=== PATIENT | female | born 1975 ===

== ENCOUNTER 2017-04-27 13:27 | Emergency (ER) | payer MEDICAID ==
[2017-04-27] MEDS ORDERED: Sodium Chloride 0.9% 1,000 ML IV STA (14:20)
--- NOTE | 2017-04-27 14:24 | ED PDOC ---
Arrival/HPI - General Chief Complaint: GI Problem Time Seen by Provider: 04/27/17 14:14 Historian: Patient - History of Present Illness Narrative History of Present Illness (Text): 04/27/17 14:20 Jami Tobin is a 42 year old female, whose past medical history includes cholecystectomy and 3 c-sections, who presents to the emergency department complaining of nausea, vomiting, diarrhea, and abdominal pain since 04:00 acutely, as per index clerk. Patient denies any sick person contact , fever, or any other complaints at this time. Patient is not a smoker and does not drink any alcohol. Time/Duration: Other (04:00 am this morning) Symptom Onset: Gradual Symptom Course: Unchanged Activities at Onset: Light Context: Home Associated Symptoms (Text): 04/27/17 15:02 index clerk reports abdominal pain nausea vomiting and diarrhea acutely since 4 AM today. No travel or exposure. No fever or chills. No back pain. No genitourinary symptoms. Past Medical History - Provider Review Nursing Documentation Reviewed: Yes - Infectious Disease Hx of Infectious Diseases: None - Reproductive Menopause: No - Cardiac Hx Hypertension: Yes - Psychiatric Hx Substance Use: No - Surgical History Hx Section: Yes Hx Cholecystectomy: Yes - Anesthesia Hx Anesthesia: No Family/Social History - Physician Review Nursing Documentation Reviewed: Yes Family/Social History: No Known Family HX Smoking Status: Never Smoked Hx Alcohol Use: No Hx Substance Use: No Allergies/Home Meds Allergies/Adverse Reactions: Allergies aspirin Allergy (Verified 04/27/17 13:55) RASH Home Medications: Home Meds Medication Instructions Recorded Confirmed Hctz 12.5 12.5 mg PO DAILY 04/27/17 04/27/17 Review of Systems - Physician Review All systems were reviewed & negative as marked: Yes - Review of Systems Constitutional: absent: Fevers Eyes: absent: Vision Changes ENT: absent: Hearing Changes Respiratory: absent: SOB, Cough Cardiovascular: absent: Chest Pain Gastrointestinal: Abdominal Pain, Diarrhea, Nausea, Vomiting Genitourinary Female: absent: Dysuria, Frequency Musculoskeletal: absent: Arthralgias Skin: absent: Rash Neurological: absent: Headache Endocrine: absent: Diaphoresis Hemo/Lymphatic: absent: Adenopathy Psychiatric: absent: Anxiety, Depression Physical Exam Vital Signs Reviewed: Yes Vital Signs Temp Pulse Resp BP Pulse Ox 04/27/17 13:51 99.7 F H 92 H 16 146/83 98 Temperature: Afebrile Blood Pressure: Normal Pulse: Regular Respiratory Rate: Normal Appearance: Positive for: Uncomfortable, Other (Obese) Pain Distress: None - Systems Exam Head: Present: Atraumatic, Normocephalic Pupils: Present: PERRL Extroacular Muscles: Present: EOMI Conjunctiva: Present: Normal Mouth: Present: Dry (mucous membranes) Pharnyx: No: ERYTHEMA, EXUDATE, TONSILS ENLARGED Neck: Present: Normal Range of Motion Respiratory/Chest: Present: Clear to Auscultation, Good Air Exchange. No: Respiratory Distress, Accessory Muscle Use Cardiovascular: Present: Regular Rate and Rhythm, Normal S1, S2. No: Murmurs Abdomen: Present: Normal Bowel Sounds, Scars. No: Tenderness, Distention, Peritoneal Signs, Rebound Back: Present: Normal Inspection Upper Extremity: Present: Normal Inspection. No: Cyanosis, Edema Lower Extremity: Present: Normal Inspection. No: Edema Neurological: Present: GCS=15, CN II-XII Intact, Speech Normal, Motor Func Grossly Intact Skin: Present: Warm, Dry, Normal Color. No: Rashes Psychiatric: Present: Alert, Oriented x 3, Normal Insight, Normal Concentration Medical Decision Making ED Course and Treatment: 04/27/17 14:25 Impression: 42 year old female complainig of nausea, vomiting, diarrhea, and abdominal pain since 04:00 acutely. Plan: -- Urinalysis -- Labs -- Protonix, Zofran, and IV Fluids -- Reassess and disposition Progress Notes: 04/27/17 16:03 Symptoms are markedly improved. - Lab Interpretations Lab Results: 04/27/17 15:00 04/27/17 15:00 Lab Results 04/27/17 15:00: Sodium 142, Potassium 3.8, Chloride 103, Carbon Dioxide 26, Anion Gap 16, BUN 12, Creatinine 0.7, Est GFR ( Amer) > 60, Est GFR (Non- Af Amer) > 60, Random Glucose 89, Calcium 9.7, Total Bilirubin 0.5, AST 24, ALT 29, Alkaline Phosphatase 84, Total Protein 7.9, Albumin 4.4, Globulin 3.5, Albumin/Globulin Ratio 1.3, Lipase 69 04/27/17 15:00: Urine Color Yellow, Urine Appearance Sl cloudy, Urine pH 6.0, Ur Specific [place] 1.025, Urine Protein Trace H, Urine Glucose (UA) Negative, Urine Ketones Negative, Urine Blood Moderate H, Urine Nitrate Negative, Urine Bilirubin Negative, Urine Urobilinogen 0.2, Ur Leukocyte Esterase Negative, Urine RBC 1 - 3, Urine WBC Negative, Ur Epithelial Cells 3 - 4 04/27/17 15:00: WBC 5.5, RBC 4.10, Hgb 10.8 L, Hct 34.2 L, MCV 83.4, MCH 26.3, MCHC 31.6, RDW 14.4, Plt Count 254, MPV 9.0, Gran % 77.9 H, Lymph % (Auto) 14.4 L, [place] % (Auto) 6.0, Eos % (Auto) 1.5, Baso % (Auto) 0.2, Gran # 4.29, Lymph # 0.8 L, [place] # 0.3, Eos # 0.1, Baso # 0.01 - Medication Orders Current Medication Orders: Discontinued Medications Sodium Chloride (Sodium Chloride 0.9%) 1,000 mls @ 1,000 mls/hr IV .Q1H STA Stop: 04/27/17 15:19 Last Admin: 04/27/17 15:03 Dose: 1,000 mls/hr eMAR Start Stop Document 04/27/17 15:03 EQ (Rec: 04/27/17 15:03 EQ [id number]) Intravenous Solution Start Date 04/27/17 Start Time 15:03 Ondansetron HCl (Zofran Inj) 4 mg IVP STAT STA Stop: 04/27/17 14:21 Last Admin: 04/27/17 15:03 Dose: 4 mg IVP Administration Document 04/27/17 15:03 EQ (Rec: 04/27/17 15:03 EQ [id number]) Charges for Administration # of IVP Administrations 1 Pantoprazole Sodium (Protonix Inj) 40 mg IVP STAT STA Stop: 04/27/17 14:21 Last Admin: 04/27/17 15:03 Dose: 40 mg IVP Administration Document 04/27/17 15:03 EQ (Rec: 04/27/17 15:03 EQ [id number]) Charges for Administration # of IVP Administrations 1 - Scribe Statement The provider has reviewed the documentation as recorded by the George Gill Provider Scribe Attestation: All medical record entries made by the Daryibraul were at my direction and personally dictated by me. I have reviewed the chart and agree that the record accurately reflects my personal performance of the history, physical exam, medical decision making, and the department course for this patient. I have also personally directed, reviewed, and agree with the discharge instructions and disposition. Disposition/Present on Arrival - Present on Arrival Any Indicators Present on Arrival: No History of DVT/PE: No History of Uncontrolled Diabetes: No Urinary Catheter: No History of Decub. Ulcer: No History Surgical Site Infection Following: None - Disposition Have Diagnosis and Disposition been Completed?: Yes Diagnosis: Gastroenteritis, Nausea vomiting and diarrhea, Abdominal pain Disposition: HOME/ ROUTINE Disposition Time: 16:03 Patient Plan: Discharge Condition: IMPROVED Discharge Instructions (ExitCare): Gastroenteritis (ED), Acute Diarrhea (ED), Acute Nausea and Vomiting (ED), Abdominal Pain (ED) Additional Instructions: Symptomatic treatment. Clear liquids for 24 hours. Follow-up with PMD. Follow up in ER as needed. Prescriptions: Pantoprazole Sodium [Protonix] 40 mg PO DAILY #20 ect Ondansetron [Zofran Odt] 4 mg SL Q6 #20 odt Referrals: Mindy Cazares, [Primary Care Provider] - Follow up with primary Forms: [employer] (Bulgarian)
[2017-04-27 15:21] LABS: BASO # 0.01 K/mm3 (0.0-2.0); BASO % 0.2 % (0.0-3.0); EOS # 0.1 (0.0-0.7); EOS % 1.5 % (1.5-5.0); GRAN # 4.29 (1.4-6.5); GRAN % 77.9 % (50.0-68.0); HEMOGLOBIN 10.8 g/dL (12.0-16.0); LYMPH # 0.8 (1.2-3.4); LYMPH % 14.4 % (22.0-35.0); MEAN CELL VOLUME 83.4 fl (80.0-105.0); MEAN CORPUSCULAR HEMOGLOBIN 26.3 pg (25.0-35.0); MEAN CORPUSCULAR HGB CONC 31.6 g/dl (31.0-37.0); MONO # 0.3 (0.1-0.6); RBC 4.1 10^6/uL (3.5-6.1); RED CELL DISTRIBUTION WIDTH 14.4 % (11.5-14.5); WHITE BLOOD COUNT 5.5 10^3/ul (4.5-11.0)
[2017-04-27 15:26] LABS: URINE APPEARANCE SL CLOUDY (CLEAR); URINE BILIRUBIN NEGATIVE (NEGATIVE); URINE BLOOD MODERATE (NEGATIVE); URINE COLOR YELLOW (YELLOW); URINE GLUCOSE (UA) NEGATIVE (NEGATIVE); URINE LEUKOCYTE ESTERASE NEGATIVE Leu/uL (NEGATIVE); URINE NITRATE NEGATIVE (NEGATIVE); URINE PROTEIN TRACE mg/dL (<30 mg/dL); URINE UROBILINOGEN 0.2 E.U./dL (<1 E.U./dL)
[2017-04-27 15:29] LABS: URINE WBC NEGATIVE /hpf (0-6)
[2017-04-27 15:32] LABS: ALB/GLOB RATIO 1.3 (1.1-1.8); ALBUMIN 4.4 g/dL (3.0-4.8); ALT/SGPT 29 U/L (7-56); AST/SGOT 24 U/L (14-36); BLOOD UREA NITROGEN 12 mg/dL (7-21); CALCIUM 9.7 mg/dL (8.4-10.5); GFR AFRICAN-AMERICAN > 60; GFR NON-AFRICAN AMERICAN > 60; LIPASE 69 U/L (23-300)
[2017-04-27 16:36] VITALS: BP 134/78; PULSE 81; RESP 18; TEMP 99; O2SAT 99
== END 2017-04-27 16:30 | disposition home or self-care (01) ==
LOC: ED 13:27
DX: K52.9 Noninfective gastroenteritis and colitis, unspecified (principal); R11.2 Nausea with vomiting, unspecified; I10 Essential (primary) hypertension
CPT/HCPCS: 80053; 81001; 83690; 85025; 96374; 96375; 99284; C9113; J2405; J7040

== ENCOUNTER 2017-04-28 10:52 | Observation (INO) | payer MEDICAID ==
[2017-04-28 11:27] VITALS: BMI 40.4
[2017-04-28] MEDS ORDERED: Sodium Chloride 0.9% 1,000 ML IV STA (12:33)
--- NOTE | 2017-04-28 12:34 | ED PDOC ---
Arrival/HPI - General Chief Complaint: GI Problem Time Seen by Provider: 04/28/17 12:27 Historian: Patient - History of Present Illness Narrative History of Present Illness (Text): 04/28/17 12:33 42 year old female, whose past medical history includes cholecystectomy and 3 c- sections, presents to the emergency department complaining of nausea, vomiting, diarrhea, and generalized abdominal pain that began yesterday. Patient was seen yesterday for similar symptoms and returned today with no relief. Patient denies smoking or alcohol use. Patient denies any fever, chills, chest pain, shortness of breath, urinary symptoms, back pain, neck pain, headache, dizziness , or any other complaints. Time/Duration: 24 hours Symptom Course: Unchanged Activities at Onset: Light Context: Home Past Medical History - Provider Review Nursing Documentation Reviewed: Yes - Infectious Disease Hx of Infectious Diseases: None - Cardiac Hx Hypertension: Yes - Psychiatric Hx Substance Use: No - Surgical History Hx Section: Yes Hx Cholecystectomy: Yes - Anesthesia Hx Anesthesia: No Family/Social History - Physician Review Nursing Documentation Reviewed: Yes Family/Social History: No Known Family HX Smoking Status: Never Smoked Hx Alcohol Use: No Hx Substance Use: No Allergies/Home Meds Allergies/Adverse Reactions: Allergies aspirin Allergy (Verified 04/27/17 13:55) RASH Home Medications: Home Meds Medication Instructions Recorded Confirmed Hctz 12.5 12.5 mg PO DAILY 04/27/17 04/27/17 Review of Systems - Physician Review All systems were reviewed & negative as marked: Yes - Review of Systems Constitutional: absent: Fevers, Other (Chills) Respiratory: absent: SOB Cardiovascular: absent: Chest Pain Gastrointestinal: Abdominal Pain, Diarrhea, Nausea, Vomiting Genitourinary Female: absent: Dysuria, Frequency, Hematuria Musculoskeletal: absent: Back Pain, Neck Pain Neurological: absent: Headache, Dizziness Physical Exam Vital Signs Reviewed: Yes Vital Signs Temp Pulse Resp BP Pulse Ox 04/28/17 15:52 74 18 137/65 99 04/28/17 13:06 98.2 F 77 16 139/68 99 04/28/17 11:13 98.2 F 87 16 149/78 98 Temperature: Afebrile Blood Pressure: Normal Pulse: Regular Respiratory Rate: Normal Appearance: Positive for: Well-Appearing, Non-Toxic, Uncomfortable, Other (Obese ) Pain Distress: None Mental Status: Positive for: Alert and Oriented X 3 - Systems Exam Head: Present: Atraumatic, Normocephalic Pupils: Present: PERRL Extroacular Muscles: Present: EOMI Conjunctiva: Present: Normal Mouth: Present: Moist Mucous Membranes Neck: Present: Normal Range of Motion Respiratory/Chest: Present: Clear to Auscultation, Good Air Exchange. No: Respiratory Distress, Accessory Muscle Use Cardiovascular: Present: Regular Rate and Rhythm, Normal S1, S2. No: Murmurs Abdomen: Present: Tenderness (Mild generalized abdominal tenderness ), Normal Bowel Sounds. No: Distention, Peritoneal Signs, Rebound, Guarding Back: Present: Normal Inspection. No: CVA Tenderness Upper Extremity: Present: Normal Inspection. No: Cyanosis, Edema Lower Extremity: Present: Normal Inspection. No: Edema Neurological: Present: GCS=15, CN II-XII Intact, Speech Normal Skin: Present: Warm, Dry, Normal Color. No: Rashes Psychiatric: Present: Alert, Oriented x 3, Normal Insight, Normal Concentration Medical Decision Making ED Course and Treatment: 04/28/17 12:33 Impression: 42 year old female presents complaining of nausea, vomiting, diarrhea, and abdominal pain that began yesterday. Plan: -- CT ABD & Pelvis w/o Contrast -- Labs -- Protonix Inj -- IV Fluids -- Toradol -- Zofran Inj -- Urinalysis w/ Micro -- Reassess and disposition Prior Visits: Notes and results from previous visits were reviewed. Patient was last seen in the emergency department on 04/27/17 presents complaining of of nausea, vomiting , diarrhea, and abdominal pain since 04:00. Patient was discharged. Progress Notes: 04/28/17 15:48 Still with watery diarrhea and unable to tolerate by mouth. She does not want to go home. Her complaints are out of proportion to her examination. 04/28/17 15:52 Discussed with the hospitalist who will place on a regular observation bed. He requests a surgical consult which has been ordered for him. - Lab Interpretations Lab Results: 04/28/17 12:30 04/28/17 14:15 Lab Results 04/28/17 14:15: Sodium 142, Potassium 3.3 L, Chloride 107, Carbon Dioxide 21, Anion Gap 17, BUN 8, Creatinine 0.6 L, Est GFR ( Amer) > 60, Est GFR (Non -Af Amer) > 60, Random Glucose 77, Calcium 8.1 L, Total Bilirubin 0.4, AST 21, ALT 28, Alkaline Phosphatase 92, Total Protein 7.2, Albumin 4.1, Globulin 3.1, Albumin/Globulin Ratio 1.3, Lipase 51 04/28/17 12:30: WBC 5.2, RBC 4.14, Hgb 11.1 L, Hct 34.7 L, MCV 83.8, MCH 26.8, MCHC 32.0, RDW 14.7 H, Plt Count 325, MPV 10.5, Gran % 73.9 H, Lymph % (Auto) 17.3 L, [place] % (Auto) 7.6 H, Eos % (Auto) 1.0 L, Baso % (Auto) 0.2, Gran # 3.81 , Lymph # 0.9 L, Day # 0.4, Eos # 0.1, Baso # 0.01 I have reviewed the lab results: Yes - RAD Interpretation Radiology Orders: 04/28/17 12:33 ABD & PELVIS W/O PO OR IV CONT [CT] Stat CT scan of the abdomen and pelvis is read by the radiologist shows dilated loops of small bowel in the left upper quadrant with no transition point and possible early small bowel obstruction. Patient does have watery diarrhea, and obstruction is not likely at all. Template Storage Clerk: Radiologist - Medication Orders Current Medication Orders: Discontinued Medications Sodium Chloride (Sodium Chloride 0.9%) 1,000 mls @ 1,000 mls/hr IV .Q1H STA Stop: 04/28/17 13:32 Last Admin: 04/28/17 13:05 Dose: 1,000 mls/hr eMAR Start Stop Document 04/28/17 13:05 OCS (Rec: 04/28/17 13:25 OCS [id number]) Intravenous Solution Start Date 04/28/17 Start Time 13:25 End Date 04/28/17 End time 14:25 Total Infusion Time 60 Ketorolac Tromethamine (Toradol) 30 mg IVP STAT STA Stop: 04/28/17 12:34 Last Admin: 04/28/17 13:05 Dose: 30 mg MAR Pain Assessment Document 04/28/17 13:05 OCS (Rec: 04/28/17 13:28 OCS [id number]) Pain Reassessment Is this a pain reassessment? Yes Sleep Is patient sleeping during reassessment? No Presence of Pain Presence of Pain Yes Pain Scale Used Pain Scale Used Numeric Location Upper or Lower Lower Pain Location Body Site Abdomen Description Description Constant Intensity of Pain at present 8 IVP Administration Document 04/28/17 13:05 OCS (Rec: 04/28/17 13:28 [id number] Charges for Administration # of IVP Administrations 1 Ondansetron HCl (Zofran Inj) 4 mg IVP STAT STA Stop: 04/28/17 12:34 Last Admin: 04/28/17 13:05 Dose: 4 mg IVP Administration Document 04/28/17 13:05 OCS (Rec: 04/28/17 13:26 [id number] Charges for Administration # of IVP Administrations 1 Pantoprazole Sodium (Protonix Inj) 40 mg IVP STAT STA Stop: 04/28/17 12:34 Last Admin: 04/28/17 13:05 Dose: 40 mg IVP Administration Document 04/28/17 13:05 OCS (Rec: 04/28/17 13:24 [id number]) Charges for Administration # of IVP Administrations 1 Potassium Chloride (Potassium Chloride Oral Soln) 40 meq PO STAT STA Stop: 04/28/17 15:31 Last Admin: 04/28/17 15:38 Dose: 40 meq - Scribe Statement The provider has reviewed the documentation as recorded by the George Angelo Provider Scribe Attestation: All medical record entries made by the George were at my direction and personally dictated by me. I have reviewed the chart and agree that the record accurately reflects my personal performance of the history, physical exam, medical decision making, and the department course for this patient. I have also personally directed, reviewed, and agree with the discharge instructions and disposition. Disposition/Present on Arrival - Present on Arrival Any Indicators Present on Arrival: No History of DVT/PE: No History of Uncontrolled Diabetes: No Urinary Catheter: No History of Decub. Ulcer: No History Surgical Site Infection Following: None - Disposition Have Diagnosis and Disposition been Completed?: Yes Diagnosis: Gastroenteritis, Nausea vomiting and diarrhea, Hypokalemia, Anemia, Abdominal pain, Obesity Disposition: HOSPITALIZED Disposition Time: 15:54 Patient Plan: Observation Condition: GOOD Referrals: [facility], [Primary Care Provider] - Follow up with primary Forms: [employer] (Djiboutian)
[2017-04-28 13:22] LABS: BASO # 0.01 K/mm3 (0.0-2.0); BASO % 0.2 % (0.0-3.0); EOS # 0.1 (0.0-0.7); GRAN # 3.81 (1.4-6.5); GRAN % 73.9 % (50.0-68.0); HEMOGLOBIN 11.1 g/dL (12.0-16.0); LYMPH # 0.9 (1.2-3.4); LYMPH % 17.3 % (22.0-35.0); MEAN CELL VOLUME 83.8 fl (80.0-105.0); MEAN CORPUSCULAR HEMOGLOBIN 26.8 pg (25.0-35.0); MEAN PLATELET VOLUME 10.5 fl (7.0-11.0); MONO # 0.4 (0.1-0.6); MONO % 7.6 % (1.0-6.0); RBC 4.14 10^6/uL (3.5-6.1); RED CELL DISTRIBUTION WIDTH 14.7 % (11.5-14.5); WHITE BLOOD COUNT 5.2 10^3/ul (4.5-11.0)
[2017-04-28 14:43] LABS: ALB/GLOB RATIO 1.3 (1.1-1.8); ALBUMIN 4.1 g/dL (3.0-4.8); ALT/SGPT 28 U/L (7-56); AST/SGOT 21 U/L (14-36); BLOOD UREA NITROGEN 8 mg/dL (7-21); CALCIUM 8.1 mg/dL (8.4-10.5); GFR AFRICAN-AMERICAN > 60; GFR NON-AFRICAN AMERICAN > 60; LIPASE 51 U/L (23-300)
--- NOTE | 2017-04-28 14:57 | CT ---
PROCEDURE: CT Abdomen and Pelvis without intravenous contrast HISTORY: pain COMPARISON: None. TECHNIQUE: Without contrast.. Contrast Dose: 0 Radiation dose: Total exam DLP = 1433.82 mGy-cm. This CT exam was performed using one or more of the following dose reduction techniques: Automated exposure control, adjustment of the mA and/or kV according to patient size, and/or use of iterative reconstruction technique. FINDINGS: LOWER THORAX: Unremarkable. LIVER: Normal size, contour and attenuation. Nonspecific low-density mass in the left lobe of the liver, at the dome, 10 mm diameter. 9 mm low-density mass seen in the anterior right hepatic lobe. No other mass. No biliary dilatation. GALLBLADDER AND BILE DUCTS: Gallbladder not visualized. There are no surgical clips seen in the gallbladder fossa. Likely contracted gallbladder at the time of this examination. PANCREAS: Unremarkable. No gross lesion or ductal dilatation. SPLEEN: Unremarkable. ADRENALS: Unremarkable. No mass. KIDNEYS AND URETERS: Unremarkable. No hydronephrosis. No solid mass. VASCULATURE: Unremarkable. No aortic aneurysm. BOWEL: Mildly dilated loops of small bowel in the left upper quadrant of the abdomen may reflect early mechanical small bowel obstruction. No definite transition point identifiable on this examination. Mild sigmoid diverticulosis without evidence of diverticulitis. No other abnormal bowel is identified. APPENDIX: Unremarkable. Normal appendix. PERITONEUM: Unremarkable. No free fluid. No free air. LYMPH NODES: No retroperitoneal or pelvic lymphadenopathy. Shot[place] subcentimeter nodes are seen in the small bowel mesenteric. This is nonspecific. Consider mesenteric adenitis. BLADDER: Poorly distended. No gross abnormality. REPRODUCTIVE: Globular enlarged uterus. Possibly fibroid. BONES: No acute fracture. OTHER FINDINGS: None. IMPRESSION: Mildly dilated small bowel loops in the left upper quadrant of the abdomen. Rule out early mechanical small bowel obstruction. No definite transition point identified. [place] subcentimeter small bowel mesenteric nodes are identified. Nonspecific finding. Rule out mesenteric adenitis peer Probable contracted gallbladder. Sigmoid diverticulosis. Normal appendix. Nonspecific small low-density lesions in the liver.
[2017-04-28] MEDS ORDERED: Potassium Chloride 40 mEq/30 ml LIQ UD PO STA (15:30)
--- NOTE | 2017-04-28 16:55 | CP.PCM.HP ---
<Rufus Vasques - Last Filed: 04/28/17 18:09> Meds Allergies/Adverse Reactions: Allergies Allergy/AdvReac Type Severity Reaction Status Date / Time aspirin Allergy RASH Verified 04/28/17 17:18 Results - Vital Signs Recent Vital Signs: Last Vital Signs Temp 98.2 F 04/28/17 13:06 Pulse 74 04/28/17 15:52 Resp 18 04/28/17 15:52 BP 137/65 04/28/17 15:52 Pulse Ox 99 04/28/17 15:52 - Labs Result Diagrams: 04/28/17 12:30 04/28/17 14:15 Labs: Laboratory Results - last 24 hr 04/28/17 04/28/17 12:30 14:15 WBC 5.2 RBC 4.14 Hgb 11.1 L Hct 34.7 L MCV 83.8 MCH 26.8 MCHC 32.0 RDW 14.7 H Plt Count 325 MPV 10.5 Gran % 73.9 H Lymph % (Auto) 17.3 L [place] % (Auto) 7.6 H Eos % (Auto) 1.0 L Baso % (Auto) 0.2 Gran # 3.81 Lymph # 0.9 L [place] # 0.4 Eos # 0.1 Baso # 0.01 Sodium 142 Potassium 3.3 L Chloride 107 Carbon Dioxide 21 Anion Gap 17 BUN 8 Creatinine 0.6 L Est GFR ( Amer) > 60 Est GFR (Non-Af Amer) > 60 Random Glucose 77 Calcium 8.1 L Total Bilirubin 0.4 AST 21 ALT 28 Alkaline Phosphatase 92 Total Protein 7.2 Albumin 4.1 Globulin 3.1 Albumin/Globulin Ratio 1.3 Lipase 51 <Marika Escalona - Last Filed: 04/28/17 18:55> History of Present Illness - History of Present Illness History of Present Illness: Marika Escalona, PGY1, Medicine H&P for Dr Sawyer: CC: nausea, vomiting, diarrhea for past 3 days 42 year old female, with PMH HTN, cholecystectomy, presents for acute episode of nausea, vomiting, diarrhea for past 3 days. Pt describes daily 10 episodes of clear, watery to now bilious nonbloody vomiting, and 10 episodes of watery, mucuosy, nonbloody diarrhea. Denies fever, chills, hematemesis, hematochezia, dizziness, melena. Pt is passing flatus. Recent travel to [facility] returned on 04/12/17 with no symptoms at that time. Denies eating anything unusual the day prior or sick contacts. Denies sob, cough, respiratory symptoms , chest pain, shortness of breath, urinary symptoms, back pain, neck pain, headache, dizziness, or any other complaints. No prior EGD or colonoscopy. In ED, pt afebrile and vitals stable. Mildly hypokalemic 3.3 on labs, given zofran, protonix, KCL 40 meq, 1 L NS bolus. 12 point ROS obtained and negative, except as per HPI. PMH: HTN, anemia PSH: cholecystectomy, 3 C-sections All: ASA FH: Mother, father, [place]: lives with son. works as a home health aide. Denies tobacco/ETOH/drug use. Present on Admission - Present on Admission Any Indicators Present on Admission: No History of DVT/PE: No History of Uncontrolled Diabetes: No Urinary Catheter: No Decubitus Ulcer Present: No Review of Systems - Review of Systems All systems: reviewed and no additional remarkable complaints except Review of Systems: as per hPI Past Patient History - Infectious Disease Hx of Infectious Diseases: None - Past Social History Smoking Status: Never Smoked - CARDIAC Hx Hypertension: Yes - PSYCHIATRIC Hx Substance Use: No - SURGICAL HISTORY Hx Section: Yes Hx Cholecystectomy: Yes - ANESTHESIA Hx Anesthesia: No Physical Exam - Constitutional Appears: Non-toxic - Head Exam Head Exam: ATRAUMATIC, NORMOCEPHALIC - Eye Exam Eye Exam: EOMI, Normal appearance, PERRL. absent: Conjunctival injection, Nystagmus, Scleral icterus Pupil Exam: NORMAL ACCOMODATION, PERRL - ENT Exam ENT Exam: Mucous Membranes Moist - Neck Exam Neck exam: Positive for: Full Rom. Negative for: Lymphadenopathy - Respiratory Exam Respiratory Exam: Clear to Auscultation Bilateral. absent: Accessory Muscle Use , Chest Wall Tenderness, Rhonchi, Wheezes, Respiratory Distress - Cardiovascular Exam Cardiovascular Exam: RRR, +S1, +S2. absent: Systolic Murmur - GI/Abdominal Exam GI & Abdominal Exam: Hyperactive Bowel Sounds, Soft, Tenderness (TTP diffusely) . absent: Distended, Mass, Rebound, Rigid - Extremities Exam Extremities exam: Positive for: normal inspection. Negative for: calf tenderness, pedal edema - Back Exam Back exam: NORMAL INSPECTION. absent: CVA tenderness (L), CVA tenderness (R) - Neurological Exam Neurological exam: Alert, Oriented x3 - Psychiatric Exam Psychiatric exam: Normal Affect, Normal Mood - Skin Skin Exam: Dry, Normal Color, Warm Results - Vital Signs Recent Vital Signs: Last Vital Signs Temp 98.2 F 04/28/17 13:06 Pulse 74 04/28/17 15:52 Resp 18 04/28/17 15:52 BP 137/65 04/28/17 15:52 Pulse Ox 99 04/28/17 15:52 - Labs Result Diagrams: 04/28/17 12:30 04/28/17 14:15 Labs: Laboratory Results - last 24 hr 04/28/17 04/28/17 12:30 14:15 WBC 5.2 RBC 4.14 Hgb 11.1 L Hct 34.7 L MCV 83.8 MCH 26.8 MCHC 32.0 RDW 14.7 H Plt Count 325 MPV 10.5 Gran % 73.9 H Lymph % (Auto) 17.3 L [place] % (Auto) 7.6 H Eos % (Auto) 1.0 L Baso % (Auto) 0.2 Gran # 3.81 Lymph # 0.9 L [place] # 0.4 Eos # 0.1 Baso # 0.01 Sodium 142 Potassium 3.3 L Chloride 107 Carbon Dioxide 21 Anion Gap 17 BUN 8 Creatinine 0.6 L Est GFR ( Amer) > 60 Est GFR (Non-Af Amer) > 60 Random Glucose 77 Calcium 8.1 L Total Bilirubin 0.4 AST 21 ALT 28 Alkaline Phosphatase 92 Total Protein 7.2 Albumin 4.1 Globulin 3.1 Albumin/Globulin Ratio 1.3 Lipase 51 Assessment & Plan - Assessment and Plan (Free Text) Assessment: 42 year old female with PMH HTN, cholecystectomy, admitted for nausea/vomiting/ diarrhea: Nausea/vomiting/diarrhea: - likely 2/2 gastroenteritis vs giardiasis vs c diff colitis - CT abd pelvis showed mildly dilated marco bowel loops in upper quad. r/o mechanical SBO? shotty sub cm small bowel mesenteric nodes identified. r/o mesenteric adenitis. probable contracted GB. sigmoid diverticulitis. Low density lesions in liver. - IVF hydration - Zofran prn - Pepcid - CLD. Advance as tolerated - Sent for stool ova/parasites, C.diff. f/u results Hypokalemia: - Repleted. along with Magnesium - Cont to monitor Hx of HTN: - Currently losing fluids thru active diarrhea/vomiting episodes - Hold home HCTZ PPX: pepcid, Lovenox sq Discussed with Dr Sawyer. Marika Escalona, PGY1 - Date & Time Date: 04/28/17 Time: 18:49 <Mimi Sawyer - Last Filed: 04/29/17 13:35> Results - Vital Signs Recent Vital Signs: Last Vital Signs Temp 98.3 F 04/29/17 08:49 Pulse 77 04/29/17 08:49 Resp 18 04/29/17 08:49 BP 133/64 04/29/17 08:49 Pulse Ox 97 04/29/17 08:49 - Labs Result Diagrams: 04/29/17 07:30 04/29/17 07:30 Labs: Laboratory Results - last 24 hr 04/29/17 04/29/17 04/29/17 01:00 07:30 07:30 WBC 3.4 L D RBC 3.72 Hgb 9.8 L Hct 30.8 L MCV 82.8 MCH 26.3 MCHC 31.8 RDW 14.5 Plt Count 221 MPV 9.3 Gran % 57.0 Lymph % (Auto) 28.5 [place] % (Auto) 11.3 H Eos % (Auto) 2.9 Baso % (Auto) 0.3 Gran # 1.96 Lymph # 1.0 L [place] # 0.4 Eos # 0.1 Baso # 0.01 Sodium 141 Potassium 4.0 Chloride 107 Carbon Dioxide 25 Anion Gap 14 BUN 6 L Creatinine 0.7 Est GFR ( Amer) > 60 Est GFR (Non-Af Amer) > 60 Random Glucose 87 Calcium 8.0 L Phosphorus 2.7 Magnesium 2.1 Total Bilirubin 0.5 AST 22 ALT 29 Alkaline Phosphatase 84 Total Protein 6.7 Albumin 3.7 Globulin 3.0 Albumin/Globulin Ratio 1.2 Urine HCG, Qual Negative Attending/Attestation - Attestation I have personally seen and examined this patient.: Yes I have fully participated in the care of the patient.: Yes I have reviewed all pertinent clinical information: Yes Notes (Text): 04/29/17 13:32 Patient was seen and examined with resident medical officer.Agreed with assessment and plan. 42 F with PMH of Obesity,HTN is admitted with intractable Nausea, vomiting and diarrhea.Patient symptoms are likely due to gastroenteritis, likely viral.We will admit patient for observation.We will start patient on IV hydration, anti emetic and liquid diet. Patient can be discharged home in 24 hour if symptoms will get better. Management plan was discussed in detail with the patient.Education was provided.
[2017-04-28] MEDS ORDERED: Sodium Chloride 0.9% 1,000 ML IV SCH (17:00)
[2017-04-28] MEDS ORDERED: Magnesium Sulfate 2 GM in Sodium Chloride 0.9% 100 ML IVPB ONE (18:47)
[2017-04-28] MEDS: Sodium Chloride 0.9% 1,000 ML IV SCH (19:11)
[2017-04-29] MEDS: Sodium Chloride 0.9% 1,000 ML IV SCH (01:49)
[2017-04-29 08:00] LABS: BASO # 0.01 K/mm3 (0.0-2.0); BASO % 0.3 % (0.0-3.0); EOS # 0.1 (0.0-0.7); EOS % 2.9 % (1.5-5.0); GRAN # 1.96 (1.4-6.5); HEMOGLOBIN 9.8 g/dL (12.0-16.0); LYMPH % 28.5 % (22.0-35.0); MEAN CELL VOLUME 82.8 fl (80.0-105.0); MEAN CORPUSCULAR HEMOGLOBIN 26.3 pg (25.0-35.0); MEAN CORPUSCULAR HGB CONC 31.8 g/dl (31.0-37.0); MEAN PLATELET VOLUME 9.3 fl (7.0-11.0); MONO # 0.4 (0.1-0.6); MONO % 11.3 % (1.0-6.0); RBC 3.72 10^6/uL (3.5-6.1); RED CELL DISTRIBUTION WIDTH 14.5 % (11.5-14.5); WHITE BLOOD COUNT 3.4 10^3/ul (4.5-11.0)
[2017-04-29 08:23] LABS: ALB/GLOB RATIO 1.2 (1.1-1.8); ALBUMIN 3.7 g/dL (3.0-4.8); ALT/SGPT 29 U/L (7-56); AST/SGOT 22 U/L (14-36); BLOOD UREA NITROGEN 6 mg/dL (7-21); GFR AFRICAN-AMERICAN > 60; GFR NON-AFRICAN AMERICAN > 60; MAGNESIUM 2.1 mg/dL (1.7-2.2)
[2017-04-29 08:50] VITALS: BP 133/64; PULSE 77; RESP 18; TEMP 98.3; O2SAT 97
[2017-04-29] MEDS ORDERED: Enoxaparin 30 mg Syringe SC SCH (10:00)
--- NOTE | 2017-04-29 14:32 | CP.PCM.DIS ---
Provider - Provider Date of Admission: 04/28/17 18:08 Attending physician: Mimi Sawyer MD Primary care physician: Mindy Profile Required Consults: None Time Spent in preparation of Discharge (in minutes): 35 Diagnosis - Discharge Diagnosis (1) Gastroenteritis Status: Acute (2) Hypokalemia Status: Acute Hospital Course - Lab Results Lab Results: Micro Results 04/28/17 23:27 Stool C. difficile Antigen & Toxin A,B (M - Final Most Recent Lab Values WBC 3.4 10^3/ul (4.5-11.0) L D 04/29/17 07:30 RBC 3.72 10^6/uL (3.5-6.1) 04/29/17 07:30 Hgb 9.8 g/dL (12.0-16.0) L 04/29/17 07:30 Hct 30.8 % (36.0-48.0) L 04/29/17 07:30 MCV 82.8 fl (80.0-105.0) 04/29/17 07:30 MCH 26.3 pg (25.0-35.0) 04/29/17 07:30 MCHC 31.8 g/dl (31.0-37.0) 04/29/17 07:30 RDW 14.5 % (11.5-14.5) 04/29/17 07:30 Plt Count 221 10^3/uL (120.0-450.0) 04/29/17 07:30 MPV 9.3 fl (7.0-11.0) 04/29/17 07:30 Gran % 57.0 % (50.0-68.0) 04/29/17 07:30 Lymph % (Auto) 28.5 % (22.0-35.0) 04/29/17 07:30 [place] % (Auto) 11.3 % (1.0-6.0) H 04/29/17 07:30 Eos % (Auto) 2.9 % (1.5-5.0) 04/29/17 07:30 Baso % (Auto) 0.3 % (0.0-3.0) 04/29/17 07:30 Gran # 1.96 (1.4-6.5) 04/29/17 07:30 Lymph # 1.0 (1.2-3.4) L 04/29/17 07:30 [place] # 0.4 (0.1-0.6) 04/29/17 07:30 Eos # 0.1 (0.0-0.7) 04/29/17 07:30 Baso # 0.01 K/mm3 (0.0-2.0) 04/29/17 07:30 Sodium 141 mmol/L (132-148) 04/29/17 07:30 Potassium 4.0 mmol/L (3.6-5.0) 04/29/17 07:30 Chloride 107 mmol/L (98-107) 04/29/17 07:30 Carbon Dioxide 25 mmol/L (21-33) 04/29/17 07:30 Anion Gap 14 (10-20) 04/29/17 07:30 BUN 6 mg/dL (7-21) L 04/29/17 07:30 Creatinine 0.7 mg/dl (0.7-1.2) 04/29/17 07:30 Est GFR ( Amer) > 60 04/29/17 07:30 Est GFR (Non-Af Amer) > 60 04/29/17 07:30 Random Glucose 87 mg/dL (70-110) 04/29/17 07:30 Calcium 8.0 mg/dL (8.4-10.5) L 04/29/17 07:30 Phosphorus 2.7 mg/dL (2.5-4.5) 04/29/17 07:30 Magnesium 2.1 mg/dL (1.7-2.2) 04/29/17 07:30 Total Bilirubin 0.5 mg/dL (0.2-1.3) 04/29/17 07:30 AST 22 U/L (14-36) 04/29/17 07:30 ALT 29 U/L (7-56) 04/29/17 07:30 Alkaline Phosphatase 84 U/L (38-126) 04/29/17 07:30 Total Protein 6.7 g/dL (5.8-8.3) 04/29/17 07:30 Albumin 3.7 g/dL (3.0-4.8) 04/29/17 07:30 Globulin 3.0 gm/dL 04/29/17 07:30 Albumin/Globulin Ratio 1.2 (1.1-1.8) 04/29/17 07:30 Lipase 51 U/L (23-300) 04/28/17 14:15 Urine HCG, Qual Negative (NEGATIVE) 04/29/17 01:00 Discharge Exam - Head Exam Head Exam: ATRAUMATIC, NORMOCEPHALIC Discharge Plan - Discharge Medications Prescriptions: Famotidine [Pepcid] 40 mg PO BID 7 Days tab Ondansetron [Zofran] 8 mg PO Q8H 5 Days tab - Follow Up Plan Condition: GOOD Disposition: HOME/ ROUTINE Instructions: Gastroenteritis (DC) Additional Instructions: - Take zofran as needed for nausea. - Take Pepcid for heartburn symptoms. - Drink plenty of fluids and stay hydrated during this viral illness. - Return to the ER if symptoms worsen. Referrals: Mindy Caazres, [Primary Care Provider] -
== END 2017-04-29 18:19 | disposition home or self-care (01) ==
LOC: ED 10:52 → ERH 18:08 → 5RSO 23:17
PROVIDERS: ADMIT Internal Medicine; ATTEND Internal Medicine
DX: K52.9 Noninfective gastroenteritis and colitis, unspecified (principal); E87.6 Hypokalemia; I10 Essential (primary) hypertension; E66.9 Obesity, unspecified; D64.9 Anemia, unspecified; Z68.41 Body mass index [BMI] 40.0-44.9, adult; Z88.6 Allergy status to analgesic agent
CPT/HCPCS: 36415; 74176; 80053; 83690; 83735; 84100; 84703; 85025; 87045; 87324; 87329; 89055; 96361; 96365; 96372; 96375; 96376; 99285; C9113; G0378; J1650; J1885; J2405; J3475; J3480; J7040

== ENCOUNTER 2018-05-20 13:08 | Emergency (ER) | payer MEDICAID ==
[2018-05-20 13:15] VITALS: BMI 36.6
[2018-05-20 13:23] VITALS: TEMP 97.8
[2018-05-20 14:11] LABS: BASO # 0.01 K/mm3 (0.0-2.0); BASO % 0.2 % (0.0-3.0); EOS # 0.1 (0.0-0.7); EOS % 1.2 % (1.5-5.0); LYMPH # 1.3 (1.2-3.4); LYMPH % 26.2 % (22.0-35.0); MEAN CELL VOLUME 78.1 fl (80.0-105.0); MEAN CORPUSCULAR HEMOGLOBIN 23.4 pg (25.0-35.0); MEAN PLATELET VOLUME 8.9 fl (7.0-11.0); MONO # 0.3 (0.1-0.6); MONO % 5.1 % (1.0-6.0); RBC 3.84 10^6/uL (3.5-6.1); RED CELL DISTRIBUTION WIDTH 16.3 % (11.5-14.5); WHITE BLOOD COUNT 5.1 10^3/uL (4.5-11.0)
[2018-05-20 14:19] LABS: ALB/GLOB RATIO 1.5 (1.1-1.8); ALBUMIN 4.3 g/dL (3.0-4.8); ALT/SGPT 10 U/L (7-56); AST/SGOT 19 U/L (14-36); BLOOD UREA NITROGEN 13 mg/dL (7-21); CALCIUM 9.1 mg/dL (8.4-10.5); GFR NON-AFRICAN AMERICAN > 60; INR 1.25; PARTIAL THROMBOPLASTIN TIME 28.5 Seconds (26.9-38.3); PROTHROMBIN TIME 13.9 SECONDS (9.4-12.5)
[2018-05-20 14:20] LABS: D DIMER < 200 ng/mlDDU (0-243)
[2018-05-20 14:23] LABS: URINE BILIRUBIN NEGATIVE (NEGATIVE); URINE BLOOD NEGATIVE (NEGATIVE); URINE GLUCOSE (UA) NEGATIVE (NEGATIVE); URINE LEUKOCYTE ESTERASE NEGATIVE Leu/uL (NEGATIVE); URINE PROTEIN TRACE mg/dL (<30 mg/dL); URINE UROBILINOGEN 0.2 E.U./dL (<1 E.U./dL)
--- NOTE | 2018-05-20 14:28 | ED PDOC ---
Arrival/HPI - General Chief Complaint: Chest Pain Time Seen by Provider: 05/20/18 13:13 Historian: Patient - History of Present Illness Narrative History of Present Illness (Text): 05/20/18 14:23 43yo female with pmhx of Asthma who present with 3days history of chest and mid back pain. No relieving/exacerbating factors. Denies SOB, diaphoresis, nausea, vomiting, dizziness, nausea, abdominal pain, fever, chills, recent travel, OCP use, recent surgery, No calf pain, no orthopnea, any other complaint. Past Medical History - Provider Review Nursing Documentation Reviewed: Yes - Infectious Disease Hx of Infectious Diseases: None - Reproductive Currently : No - Cardiac Hx Hypertension: Yes - Musculoskeletal/Rheumatological Hx Falls: No - Psychiatric Hx Substance Use: No - Surgical History Hx Section: Yes (x3) Hx Cholecystectomy: Yes - Anesthesia Hx Anesthesia: No Family/Social History - Physician Review Nursing Documentation Reviewed: Yes Family/Social History: Unknown Family HX Smoking Status: Never Smoked Hx Alcohol Use: No Hx Substance Use: No Allergies/Home Meds Allergies/Adverse Reactions: Allergies aspirin Allergy (Verified 04/28/17 17:18) RASH Review of Systems - Physician Review All systems were reviewed & negative as marked: Yes - Review of Systems Constitutional: Normal Eyes: Normal ENT: Normal Respiratory: Normal Cardiovascular: Chest Pain. absent: Palpitations, Edema, Calf Pain, BARLOW, Orthopnea Gastrointestinal: Normal Genitourinary Female: Normal Musculoskeletal: Normal Skin: Normal Neurological: Normal Endocrine: Normal Hemo/Lymphatic: Normal Psychiatric: Normal Physical Exam Vital Signs Reviewed: Yes Vital Signs Temp Pulse Pulse Resp BP BP Pulse Ox 05/20/18 13:15 80 159/93 H 05/20/18 13:09 97.8 F 77 18 149/93 H 99 Temperature: Afebrile Blood Pressure: Normal Pulse: Regular Respiratory Rate: Normal Appearance: Positive for: Well-Appearing, Non-Toxic, Comfortable Pain Distress: None Mental Status: Positive for: Alert and Oriented X 3 - Systems Exam Head: Present: Atraumatic, Normocephalic Pupils: Present: PERRL Extroacular Muscles: Present: EOMI Conjunctiva: Present: Normal Mouth: Present: Moist Mucous Membranes Neck: Present: Normal Range of Motion Respiratory/Chest: Present: Clear to Auscultation, Good Air Exchange. No: Respiratory Distress, Accessory Muscle Use, Wheezes, Decreased Breath Sounds, Rales, Retracting, Rhonchi Cardiovascular: Present: Regular Rate and Rhythm, Normal S1, S2. No: Murmurs Abdomen: No: Tenderness, Distention, Peritoneal Signs Back: Present: Normal Inspection Upper Extremity: Present: Normal Inspection. No: Cyanosis, Edema Lower Extremity: Present: Normal Inspection. No: Edema Neurological: Present: GCS=15, CN II-XII Intact, Speech Normal Skin: Present: Warm, Dry, Normal Color. No: Rashes Psychiatric: Present: Alert, Oriented x 3, Normal Insight, Normal Concentration Medical Decision Making ED Course and Treatment: 05/20/18 19:50 Pt presented to ED for stated history. She was in no distress. Hemodynamically stable in ED. Labs EKG Chest xray ASA Her labs was reviewed and she is anemic. she have history of anemia and Ferrous sulfate rx was given EKG NSR @ 82bpm chest xray IMPRESSION: No active disease. All result was DW the pt. she was DC home and referred to her PMD/instructional writer. She have no cardiac risk factor at this time and no ST changes in her EKG. - Lab Interpretations Lab Results: PT 13.9 SECONDS (9.4-12.5) H 05/20/18 13:48 INR 1.25 05/20/18 13:48 APTT 28.5 Seconds (26.9-38.3) 05/20/18 13:48 D-Dimer, Quantitative < 200 ng/mlDDU (0-243) 05/20/18 13:48 Total Bilirubin 0.4 mg/dL (0.2-1.3) 05/20/18 13:48 AST 19 U/L (14-36) 05/20/18 13:48 ALT 10 U/L (7-56) 05/20/18 13:48 Alkaline Phosphatase 79 U/L (38-126) 05/20/18 13:48 Total Protein 7.2 g/dL (5.8-8.3) 05/20/18 13:48 Albumin 4.3 g/dL (3.0-4.8) 05/20/18 13:48 Globulin 2.8 gm/dL 05/20/18 13:48 Albumin/Globulin Ratio 1.5 (1.1-1.8) 05/20/18 13:48 - RAD Interpretation Radiology Orders: 05/20/18 13:43 CHEST PORTABLE [RAD] Stat Disposition/Present on Arrival - Present on Arrival Any Indicators Present on Arrival: No History of DVT/PE: No History of Uncontrolled Diabetes: No Urinary Catheter: No History of Decub. Ulcer: No History Surgical Site Infection Following: None - Disposition Have Diagnosis and Disposition been Completed?: Yes Diagnosis: Anemia, Chest pain Disposition: HOME/ ROUTINE Disposition Time: 17:50 Patient Plan: Discharge Condition: STABLE Discharge Instructions (ExitCare): Chest Pain, Anemia of Chronic Disease (DC), Chest Pain (ED) Additional Instructions: Follow up with your Doctor Return to ED for any new or worsening symptoms Prescriptions: RX: Ferrous Sulfate [Feosol] 325 mg PO DAILY #20 tab Referrals: Michelle Mtz MD [Medical Doctor] - Follow up with primary Forms: [employer] ([place])
[2018-05-20 14:32] LABS: URINE APPEARANCE CLEAR (CLEAR); URINE COLOR YELLOW (YELLOW)
[2018-05-20 14:37] LABS: TROPONIN I < 0.01 ng/mL
[2018-05-20 14:46] LABS: URINE RBC 0 - 2 /hpf (0-2)
[2018-05-20 14:47] LABS: URINE AMORPHOUS SEDIMENT FEW /hpf; URINE BACTERIA MANY /hpf; URINE COARSE GRANULAR CAST TRACE /hpf
--- NOTE | 2018-05-20 14:55 | RAD ---
Date of service: 05/20/2018 HISTORY: chest pain COMPARISON: No prior. FINDINGS: LUNGS: No active pulmonary disease. PLEURA: No significant pleural effusion identified, no pneumothorax apparent. CARDIOVASCULAR: No aortic atherosclerotic calcification present. Normal cardiac size. No pulmonary vascular congestion. OSSEOUS STRUCTURES: No significant abnormalities. VISUALIZED UPPER ABDOMEN: Normal. OTHER FINDINGS: None. IMPRESSION: No active disease.
[2018-05-20 15:15] VITALS: BP 159/80; PULSE 75; RESP 20; O2SAT 98
--- NOTE | 2018-05-21 07:26 | CARD ---
APPROVED REPORT Date of service: 05/20/2018 EKG Measurement Heart [id number] <Conclusion> Normal sinus rhythm Normal ECG
== END 2018-05-20 15:15 | disposition home or self-care (01) ==
LOC: ED 13:08
DX: R07.9 Chest pain, unspecified (principal); D64.9 Anemia, unspecified; I10 Essential (primary) hypertension

== ENCOUNTER 2018-08-11 09:20 | Emergency (ER) | payer MEDICAID ==
[2018-08-11 09:32] VITALS: BMI 39.1
[2018-08-11 09:34] VITALS: RESP 18; TEMP 98.5
[2018-08-11] MEDS ORDERED: Sodium Chloride 0.9% 1,000 ML IV STA (09:38)
--- NOTE | 2018-08-11 09:38 | ED PDOC ---
Arrival/HPI - General Time Seen by Provider: 08/11/18 09:32 Historian: Patient - History of Present Illness Narrative History of Present Illness (Text): 08/11/18 09:34 43 y/o female, pmh includilng htn/anemia/chronic lower abdominal pain, surgical history of cholecystomy, not allergic to aspirin or nsaids, c/o lower abdominal pain and left flank pain x 3 days. Pt. stated that she has left flank pain, associated with lt. lower abdominal pain, no nausea or vomiting, similar pain to the episode in the past with the same characteristic and severity, no urinary symptoms, no fever or chills, no diarrhea, no pelvic pain or vaginal bleeding/discharge, no palpitation, no night sweat, no rash, no numbness or tingling, no other medical or psychological complaints. Past Medical History - Provider Review Nursing Documentation Reviewed: Yes Primary Care Provider: Gigi Syed - Infectious Disease Hx of Infectious Diseases: None - Cardiac Hx Hypertension: Yes - Hematological/Oncological Hx Anemia: Yes - Musculoskeletal/Rheumatological Hx Falls: No - Psychiatric Hx Substance Use: No - Surgical History Hx Section: Yes (x3) Hx Cholecystectomy: Yes - Anesthesia Hx Anesthesia: Yes Hx Anesthesia Reactions: No Hx Malignant Hyperthermia: No Family/Social History - Physician Review Nursing Documentation Reviewed: Yes Family/Social History: Unknown Family HX Smoking Status: Never Smoked Hx Alcohol Use: No Hx Substance Use: No Allergies/Home Meds Allergies/Adverse Reactions: Allergies No Known Allergies Allergy (Verified 08/11/18 09:44) Review of Systems - Review of Systems Constitutional: absent: Fatigue, Fevers Eyes: absent: Vision Changes ENT: absent: Hearing Changes Respiratory: absent: SOB, Cough, Sputum Cardiovascular: absent: Chest Pain Gastrointestinal: Abdominal Pain (lt. flank). absent: Diarrhea, Nausea, Vomiting Genitourinary Female: absent: Dysuria Musculoskeletal: absent: Arthralgias, Back Pain Skin: absent: Rash, Pruritis Neurological: absent: Headache, Dizziness Psychiatric: absent: Anxiety, Depression, Suicidal Ideation Physical Exam Vital Signs Reviewed: Yes Vital Signs Temp Pulse Resp BP Pulse Ox 08/11/18 09:34 98.5 F 76 18 157/86 H 98 Temperature: Afebrile Blood Pressure: Hypertensive Pulse: Regular Respiratory Rate: Normal Appearance: Positive for: Well-Appearing, Non-Toxic, Comfortable Pain Distress: Mild Mental Status: Positive for: Alert and Oriented X 3 - Systems Exam Head: Present: Atraumatic, Normocephalic Pupils: Present: PERRL Extroacular Muscles: Present: EOMI Conjunctiva: Present: Normal Mouth: Present: Moist Mucous Membranes Neck: Present: Normal Range of Motion, Trachea Midline. No: Meningeal Signs, MIDLINE TENDERNESS, Paraspinal Tenderness, Lymphadenopathy Respiratory/Chest: Present: Clear to Auscultation, Good Air Exchange. No: Respiratory Distress, Accessory Muscle Use Cardiovascular: Present: Regular Rate and Rhythm, Normal S1, S2. No: Murmurs Abdomen: Present: Tenderness (lt. flank and lt. lower abdomen), Normal Bowel Sounds. No: Distention, Peritoneal Signs, Rebound, Guarding, McBurney's Point Tender, Scars Back: Present: Normal Inspection Upper Extremity: Present: Normal Inspection. No: Cyanosis, Edema Lower Extremity: Present: Normal Inspection. No: Edema Neurological: Present: GCS=15, CN II-XII Intact, Speech Normal, Motor Func Grossly Intact, Normal Cerebellar Funct, Gait Normal, Memory Normal Skin: Present: Warm, Dry, Normal Color. No: Rashes Psychiatric: Present: Alert, Oriented x 3, Normal Insight, Normal Concentration Medical Decision Making ED Course and Treatment: 08/11/18 09:45 Pylonephritis vs. obstructive ureter stone vs. UTI vs. constipation vs. diverticulitis -labs -ct abdomen and pelvis -IVF/toradol/pepcid/zofran -observe and reassess 08/11/18 11:32 -CT abdomen and pelvis show No acute intra-abdominal or intrapelvic findings but there is uterine fibroid. -Labs are non-significant with chronic anemia hgb 9.4 from 9.0 -Trop after 24 hours -Lipase within normal limit -UA show mild UTI. -Pt. feels much better, pain resolved with the toradol. Pt. has no adverse reaction or side effect to the toradol/aspirin/nsaids, will continue nsaid for this complaints. -Discharge home with macrobid, motrin, bed rest, follow up with your own pmd and obgyn within 2 days, return to the ER for any new or worsening signs or symptoms. - RAD Interpretation Radiology Orders: Date of service: 08/11/2018 PROCEDURE: CT Abdomen and Pelvis with contrast HISTORY: lower abdominal pain x 3 days, nausea, COMPARISON: None. TECHNIQUE: Contrast dose: 150 cc of Omni 350 Radiation dose: Total exam DLP = 1441.6 mGy-cm. This CT exam was performed using one or more of the following dose reduction techniques: Automated exposure control, adjustment of the mA and/or kV according to patient size, and/or use of iterative reconstruction technique. FINDINGS: LOWER THORAX: Unremarkable. LIVER: Unremarkable. No gross lesion or ductal dilatation. GALLBLADDER AND BILE DUCTS: Unremarkable. PANCREAS: Unremarkable. No gross lesion or ductal dilatation. SPLEEN: Unremarkable. ADRENALS: Unremarkable. No mass. KIDNEYS AND URETERS: Unremarkable. No hydronephrosis. No solid mass. VASCULATURE: Unremarkable. No aortic aneurysm. No aortic atherosclerotic calcification or mural plaque present. BOWEL: Unremarkable. No obstruction. No gross mural thickening. APPENDIX: Normal appendix. PERITONEUM: Unremarkable. No free fluid. No free air. LYMPH NODES: Unremarkable. No enlarged lymph nodes. BLADDER: Unremarkable. REPRODUCTIVE: There is a large fibroid uterus measuring 14 x 9.8 x 12.1 cm. BONES: No acute fracture. OTHER FINDINGS: None. IMPRESSION: No acute intra-abdominal or intrapelvic findings Denial Management Representative: Radiologist - PA / PURCHASING MANAGER / Resident Statement MD/DO has reviewed & agrees with the documentation as recorded. Disposition/Present on Arrival - Present on Arrival Any Indicators Present on Arrival: No History of DVT/PE: No History of Uncontrolled Diabetes: No Urinary Catheter: No History of Decub. Ulcer: No History Surgical Site Infection Following: None - Disposition Have Diagnosis and Disposition been Completed?: Yes Diagnosis: Fibroid, uterine, Abdominal pain Disposition: HOME/ ROUTINE Disposition Time: 11:33 Patient Plan: Discharge Condition: IMPROVED Additional Instructions: -Discharge home with macrobid, motrin, bed rest, follow up with your own pmd and obgyn within 2 days, return to the ER for any new or worsening signs or symptoms. Prescriptions: Ibuprofen/Famotidine [Duexis 800-26.6 mg Tablet] 1 each PO TID PRN #21 tablet PRN Reason: Other Nitrofurantoin Macrocrystals [Macrobid] 100 mg PO BID #14 cap Referrals: [facility] [place] [Outside] - Follow up with primary Fritz Craig MD [Staff Provider] - Follow up with primary Judith Lewis MD [Staff Provider] - Follow up with primary Forms: WORK NOTE
[2018-08-11 10:00] LABS: BASO # 0.02 K/mm3 (0.0-2.0); BASO % 0.3 % (0.0-3.0); EOS # 0.1 (0.0-0.7); EOS % 1.2 % (1.5-5.0); HEMOGLOBIN 9.4 g/dL (12.0-16.0); LYMPH # 1.7 (1.2-3.4); LYMPH % 26.4 % (22.0-35.0); MEAN CELL VOLUME 76.6 fl (80.0-105.0); MEAN CORPUSCULAR HEMOGLOBIN 23.2 pg (25.0-35.0); MEAN CORPUSCULAR HGB CONC 30.2 g/dl (31.0-37.0); MEAN PLATELET VOLUME 8.8 fl (7.0-11.0); MONO # 0.4 (0.1-0.6); MONO % 5.8 % (1.0-6.0); RBC 4.06 10^6/uL (3.5-6.1); RED CELL DISTRIBUTION WIDTH 15.1 % (11.5-14.5); WHITE BLOOD COUNT 6.5 10^3/uL (4.5-11.0)
[2018-08-11 10:08] LABS: ALB/GLOB RATIO 1.3 (1.1-1.8); ALBUMIN 4.2 g/dL (3.0-4.8); ALT/SGPT 11 U/L (7-56); AST/SGOT 20 U/L (14-36); BLOOD UREA NITROGEN 11 mg/dL (7-21); CALCIUM 9.1 mg/dL (8.4-10.5); GFR NON-AFRICAN AMERICAN > 60; LIPASE 63 U/L (23-300)
[2018-08-11 10:15] LABS: URINE BILIRUBIN NEGATIVE (NEGATIVE); URINE BLOOD NEGATIVE (NEGATIVE); URINE GLUCOSE (UA) NEGATIVE (NEGATIVE); URINE LEUKOCYTE ESTERASE NEGATIVE Leu/uL (NEGATIVE); URINE PROTEIN 30 mg/dL (<30 mg/dL); URINE UROBILINOGEN 0.2 E.U./dL (<1 E.U./dL)
[2018-08-11 10:19] LABS: TROPONIN I < 0.01 ng/mL
[2018-08-11 10:27] LABS: URINE APPEARANCE CLEAR (CLEAR); URINE COLOR YELLOW (YELLOW)
--- NOTE | 2018-08-11 11:16 | CT ---
Date of service: 08/11/2018 PROCEDURE: CT Abdomen and Pelvis with contrast HISTORY: lower abdominal pain x 3 days, nausea, COMPARISON: None. TECHNIQUE: Contrast dose: 150 cc of Omni 350 Radiation dose: Total exam DLP = 1441.6 mGy-cm. This CT exam was performed using one or more of the following dose reduction techniques: Automated exposure control, adjustment of the mA and/or kV according to patient size, and/or use of iterative reconstruction technique. FINDINGS: LOWER THORAX: Unremarkable. LIVER: Unremarkable. No gross lesion or ductal dilatation. GALLBLADDER AND BILE DUCTS: Unremarkable. PANCREAS: Unremarkable. No gross lesion or ductal dilatation. SPLEEN: Unremarkable. ADRENALS: Unremarkable. No mass. KIDNEYS AND URETERS: Unremarkable. No hydronephrosis. No solid mass. VASCULATURE: Unremarkable. No aortic aneurysm. No aortic atherosclerotic calcification or mural plaque present. BOWEL: Unremarkable. No obstruction. No gross mural thickening. APPENDIX: Normal appendix. PERITONEUM: Unremarkable. No free fluid. No free air. LYMPH NODES: Unremarkable. No enlarged lymph nodes. BLADDER: Unremarkable. REPRODUCTIVE: There is a large fibroid uterus measuring 14 x 9.8 x 12.1 cm. BONES: No acute fracture. OTHER FINDINGS: None. IMPRESSION: No acute intra-abdominal or intrapelvic findings
[2018-08-11 11:25] LABS: URINE BACTERIA MANY /hpf; URINE EPITHELIAL CELLS MANY /hpf (0-5)
[2018-08-11 11:26] LABS: URINE AMORPHOUS SEDIMENT FEW /hpf
[2018-08-11 11:51] VITALS: BP 140/89; PULSE 70; O2SAT 100
== END 2018-08-11 12:01 | disposition home or self-care (01) ==
LOC: ED 09:20
DX: D25.9 Leiomyoma of uterus, unspecified (principal); R10.9 Unspecified abdominal pain; I10 Essential (primary) hypertension; D64.9 Anemia, unspecified; Z90.49 Acquired absence of other specified parts of digestive tract
CPT/HCPCS: 74177; 80053; 81001; 81025; 83690; 83735; 84484; 85025; 87086; 96374; 96375; 99283; J1885; J2405; J7030; Q9967

== ENCOUNTER 2018-08-13 22:17 | Observation (INO) | payer MEDICAID ==
[2018-08-13 22:18] VITALS: BMI 39.1
--- NOTE | 2018-08-13 23:32 | ED PDOC ---
Arrival/HPI - General Chief Complaint: Abdominal Pain Time Seen by Provider: 08/13/18 22:20 Historian: Patient, Manager Corporate Responsibility (Nurse Jaz) - History of Present Illness Narrative History of Present Illness (Text): 08/14/18 01:17 43 y/o female with PMH of HTN, anemia, and fibroids presents to the ED c/o lower abdominal pain x 4 days. Pain is crampy and intermittent, /10. Associated intermittent lightheadedness. Pt was seen here on 08/11/18 for the same complaints and was discharged home after a negative laboratory and imaging workup. CT Abd/Pelvis showed a large uterine fibroid. She did not followup with OBGYN, but has an appointment for 08/18/18. Currently taking macrobid for a presumed UTI. LMP 08/01/18, lasted 3 days with very heavy bleeding. Pt has not taken her BP medication in 3 days since she ran out and is unable to remember the name of the medication. Denies fever, chills, diarrhea, chest pain, SOB, dizziness, headache, vomiting, palpitations, melena, hematochezia, saddle anesthesia, incontinence, urinary symptoms, or any other associated symptoms Past Medical History - Provider Review Nursing Documentation Reviewed: Yes - Infectious Disease Hx of Infectious Diseases: None - Cardiac Hx Hypertension: Yes - Hematological/Oncological Hx Anemia: Yes - Musculoskeletal/Rheumatological Hx Falls: No - Genitourinary/Gynecological Hx Urinary Tract Infection: Yes Other/Comment: Fibroids - Psychiatric Hx Substance Use: No - Surgical History Hx Section: Yes (x3) Hx Cholecystectomy: Yes - Anesthesia Hx Anesthesia: Yes Hx Anesthesia Reactions: No Hx Malignant Hyperthermia: No Family/Social History - Physician Review Nursing Documentation Reviewed: Yes Family/Social History: No Known Family HX Smoking Status: Never Smoked Hx Alcohol Use: No Hx Substance Use: No Allergies/Home Meds Allergies/Adverse Reactions: Allergies No Known Allergies Allergy (Verified 08/13/18 22:20) Review of Systems - Review of Systems Constitutional: Normal. absent: Fevers Eyes: Normal. absent: Vision Changes ENT: Normal. absent: Sore Throat, Sinus Congestion Respiratory: Normal. absent: SOB, Cough Cardiovascular: Normal. absent: Chest Pain, Palpitations Gastrointestinal: Abdominal Pain, Nausea. absent: Stool Changes, Constipation, Diarrhea, Vomiting, Appetite Changes, Hematochezia, Hematemesis Genitourinary Female: Normal. absent: Dysuria, Frequency Musculoskeletal: Back Pain Skin: Normal. absent: Rash Neurological: Normal. absent: Headache, Dizziness Physical Exam Vital Signs Reviewed: Yes Vital Signs Temp Pulse Resp BP Pulse Ox 08/13/18 22:26 98.1 F 73 18 156/131 H 100 Temperature: Afebrile Blood Pressure: Hypertensive Pulse: Regular Respiratory Rate: Normal Appearance: Positive for: Well-Appearing, Non-Toxic, Comfortable Pain Distress: None Mental Status: Positive for: Alert and Oriented X 3 - Systems Exam Head: Present: Atraumatic, Normocephalic Pupils: Present: PERRL Extroacular Muscles: Present: EOMI Conjunctiva: Present: Normal Mouth: Present: Moist Mucous Membranes Neck: Present: Normal Range of Motion. No: Meningeal Signs Respiratory/Chest: Present: Clear to Auscultation, Good Air Exchange. No: Respiratory Distress, Accessory Muscle Use Cardiovascular: Present: Regular Rate and Rhythm, Normal S1, S2, Peripheal Pulses Present Abdomen: Present: Tenderness (mild, generalized, worse in lower abdomen), Normal Bowel Sounds. No: Distention, Peritoneal Signs, Rebound, Guarding Back: Present: Normal Inspection. No: CVA Tenderness Upper Extremity: Present: Normal Inspection, Normal ROM, NORMAL PULSES, Neurovascularly Intact, Capillary Refill < 2s. No: Cyanosis, Edema, Temperature Abnormalties Lower Extremity: Present: Normal Inspection, NORMAL PULSES, Normal ROM, Neurovascularly Intact, Capillary Refill < 2 s. No: Edema, Temperature Abnormalties Neurological: Present: GCS=15, CN II-XII Intact, Speech Normal, Motor Func Grossly Intact, Normal Sensory Function, Gait Normal Skin: Present: Warm, Dry, Normal Color. No: Rashes Psychiatric: Present: Alert, Oriented x 3, Normal Insight, Normal Concentration, Normal Affect, Normal Mood Medical Decision Making ED Course and Treatment: Initial Plan: * Labs * UA * Transvaginal Ultrasound * EKG * CXR * IVF * Toradol * Zofran EKG shows NSR at 73 without acute ischemic changes. 23:33 Repeat BP wnl Bloodwork reviewed, CBC significant for microcytic anemia, hgb 8.6/hct 28.3 from 9.4/31.1 2 days ago. CMP unremarkable UA unremarkable 01:35 Hemoccult positive on rectal exam, brown stool. No rectal tenderness, normal tone. Patient reports no improvement in pain with medication. Will admit for symptomatic anemia and GI bleed. vice president lending Jose Manuel made aware of admission. 01:45 Spoke with hospitalist, Dr. Mendoza who accepted patient for inpatient observation with diagnoses of anemia, GI bleed, and abdominal pain. Pt with stable vitals at this time, updated with change in disposition. - Lab Interpretations Lab Results: 08/13/18 23:35 08/13/18 23:35 Lab Results 08/13/18 23:35: Sodium 139, Potassium 3.8, Chloride 103, Carbon Dioxide 28, Anion Gap 12, BUN 13, Creatinine 0.9, Est GFR ( Amer) > 60, Est GFR (Non- Af Amer) > 60, Random Glucose 93, Calcium 8.6, Total Bilirubin 0.4, AST 22, ALT 8, Alkaline Phosphatase 76, Troponin I < 0.01, Total Protein 7.3, Albumin 4.0, Globulin 3.3, Albumin/Globulin Ratio 1.2, Amylase 80, Lipase 110 08/13/18 23:35: Urine Color Yellow, Urine Appearance Clear, Urine pH 6.0, Ur Specific [place] 1.020, Urine Protein Trace H, Urine Glucose (UA) Negative, Urine Ketones Negative, Urine Blood Negative, Urine Nitrate Negative, Urine Bilirubin Negative, Urine Urobilinogen 0.2, Ur Leukocyte Esterase Negative, Urine RBC 0 - 2, Urine WBC 0 - 2, Ur Epithelial Cells 0 - 2, Urine Bacteria Few 08/13/18 23:35: PT 12.1, INR 1.09, APTT 26.2 L 08/13/18 23:35: WBC 6.4, RBC 3.63, Hgb 8.6 L, Hct 28.3 L, MCV 78.0 L, MCH 23.7 L , MCHC 30.4 L, RDW 14.9 H, Plt Count 268, MPV 8.8, Neut % (Auto) 65.3, Lymph % (Auto) 23.8, [place] % (Auto) 9.4 H, Eos % (Auto) 1.3 L, Baso % (Auto) 0.2, Lymph # (Auto) 1.5, [place] # (Auto) 0.6, Eos # (Auto) 0.1, Baso # (Auto) 0.01, Absolute Neuts (auto) 4.15 I have reviewed the lab results: Yes - RAD Interpretation Narrative RAD Interpretations (Text): 08/14/18 02:30 Transvaginal Ultrasound: Findings: Enlarged uterus measuring 14.3x8.4x1.3 cm. Anterior intramural fibroid measuring 8.7 cm. Endometrium measures 12.6 mm in thickness. Normal cervix measuring 3.1 cm. No free fluid in the pelvic cul-de-sac. Normal right ovary. Nonvisualization of the left ovary. Impression: Enlarged uterus. Uterine fibroid. Radiology Orders: 08/13/18 23:07 CHEST PORTABLE [RAD] Stat 08/13/18 23:18 TRANSVAGINAL [US] Stat Manager Of Development: Radiologist - EKG Interpretation EKG Interpretation (Text): 08/14/18 01:29 Rate 73; NSR; Normal intervals; No STEMI, nonspecific ST/T wave changes Interpreted by ED Physician: Yes Type: 12 lead EKG - Medication Orders Current Medication Orders: Discontinued Medications Famotidine (Pepcid) 20 mg IVP STAT STA Stop: 08/13/18 23:08 Ketorolac Tromethamine (Toradol) 15 mg IVP STAT STA Stop: 08/13/18 23:08 Ondansetron HCl (Zofran Inj) 4 mg IVP STAT STA Stop: 08/13/18 23:08 Disposition/Present on Arrival - Present on Arrival Any Indicators Present on Arrival: No History of DVT/PE: No History of Uncontrolled Diabetes: No Urinary Catheter: No History of Decub. Ulcer: No History Surgical Site Infection Following: None - Disposition Have Diagnosis and Disposition been Completed?: Yes Diagnosis: Anemia, Abdominal pain, GI bleed Disposition: HOSPITALIZED Disposition Time: 01:45 Patient Problems: Current Active Problems Problem Status Onset Abdominal pain Acute Anemia Acute GI bleed Acute Condition: STABLE
[2018-08-13 23:51] LABS: BASO # 0.01 K/mm3 (0.0-2.0); BASO % 0.2 % (0.0-3.0); EOS # 0.1 (0.0-0.7); EOS % 1.3 % (1.5-5.0); HEMOGLOBIN 8.6 g/dL (12.0-16.0); LYMPH # 1.5 (1.2-3.4); LYMPH % 23.8 % (22.0-35.0); MEAN CORPUSCULAR HEMOGLOBIN 23.7 pg (25.0-35.0); MEAN CORPUSCULAR HGB CONC 30.4 g/dl (31.0-37.0); MEAN PLATELET VOLUME 8.8 fl (7.0-11.0); MONO # 0.6 (0.1-0.6); MONO % 9.4 % (1.0-6.0); RBC 3.63 10^6/uL (3.5-6.1); RED CELL DISTRIBUTION WIDTH 14.9 % (11.5-14.5); WHITE BLOOD COUNT 6.4 10^3/uL (4.5-11.0)
[2018-08-13 23:57] LABS: URINE BILIRUBIN NEGATIVE (NEGATIVE); URINE BLOOD NEGATIVE (NEGATIVE); URINE GLUCOSE (UA) NEGATIVE (NEGATIVE); URINE LEUKOCYTE ESTERASE NEGATIVE Leu/uL (NEGATIVE); URINE PROTEIN TRACE mg/dL (<30 mg/dL); URINE UROBILINOGEN 0.2 E.U./dL (<1 E.U./dL)
[2018-08-14] LABS: INR 1.09; PARTIAL THROMBOPLASTIN TIME 26.2 Seconds (26.9-38.3); PROTHROMBIN TIME 12.1 SECONDS (9.4-12.5)
[2018-08-14 00:03] LABS: URINE APPEARANCE CLEAR (CLEAR); URINE COLOR YELLOW (YELLOW)
[2018-08-14 00:25] LABS: TROPONIN I < 0.01 ng/mL
[2018-08-14] MEDS ORDERED: Morphine 2 mg/ml ISec IVP STA (00:27)
[2018-08-14 00:28] LABS: ALB/GLOB RATIO 1.2 (1.1-1.8); ALT/SGPT 8 U/L (7-56); AMYLASE 80 U/L (35-125); AST/SGOT 22 U/L (14-36); BLOOD UREA NITROGEN 13 mg/dL (7-21); CALCIUM 8.6 mg/dL (8.4-10.5); GFR NON-AFRICAN AMERICAN > 60; LIPASE 110 U/L (23-300)
[2018-08-14 00:47] VITALS: O2SAT 98
[2018-08-14 00:55] LABS: URINE BACTERIA FEW /hpf; URINE EPITHELIAL CELLS 0 - 2 /hpf (0-5); URINE RBC 0 - 2 /hpf (0-2); URINE WBC 0 - 2 /hpf (0-6)
--- NOTE | 2018-08-14 02:38 | CP.PCM.HP ---
<Jose Manuel Ji - Last Filed: 08/14/18 05:59> History of Present Illness - History of Present Illness History of Present Illness: HISTORY & PHYSICAL NOTE FOR HOSPITALIST SERVICE Jose Manuel Ji PGY1 43 y/o turkish speaking F with PMH CLEVE, HTN, asthma, uterine fibroids presents to ED with complaints of 5/10 diffuse crampy, intermittent abdominal, particularly in the lower quadrants not alleviated/aggravated with anything in particular that been ongoing for the past 4 days. She reports associated nausea, no vomiting, constipation or diarrhea. She reports she has heavy bleeding that lasts 3-4 days every 28 days and uses ~30-40 pads. Her LMP was 08/01/18. She report after her periods she feels fatigues & dizzy. Currently she doesn't have fevers, chills, headache, dizziness, chest pain, palpitations, shortness of breath, nausea, vomiting, constipation, diarrhea, hematochezia, hematuria, dysuria. PMH: iron deficiency anemia, HTN, asthma All: apples- hives PSH: cholecystecomy, SH: denies tobacco, occasional ETOH use Hosp: denies FH: M: 51y/o MD, F: 58y/o MD Meds: Ferrous sulfate 324, hypertension medication(doesn't remember name) PMD: Gigi Escobedo Pharm: Doesn't remember name (in [place]) Present on Admission - Present on Admission Any Indicators Present on Admission: No Review of Systems - Review of Systems Review of Systems: per HPI Past Patient History - Infectious Disease Hx of Infectious Diseases: None - Past Social History Smoking Status: Never Smoked - CARDIAC Hx Hypertension: Yes - HEMATOLOGICAL/ONCOLOGICAL Hx Anemia: Yes - MUSCULOSKELETAL/RHEUMATOLOGICAL Hx Falls: No - GENITOURINARY/GYNECOLOGICAL Hx Urinary Tract Infection: Yes Other/Comment: Fibroids - PSYCHIATRIC Hx Substance Use: No - SURGICAL HISTORY Hx Section: Yes (x3) Hx Cholecystectomy: Yes - ANESTHESIA Hx Anesthesia: Yes Hx Anesthesia Reactions: No Hx Malignant Hyperthermia: No Meds Allergies/Adverse Reactions: Allergies Allergy/AdvReac Type Severity Reaction Status Date / Time No Known Allergies Allergy Verified 08/13/18 22:20 Physical Exam - Constitutional Appears: Well, Non-toxic, No Acute Distress - Head Exam Head Exam: NORMAL INSPECTION, NORMOCEPHALIC - Eye Exam Eye Exam: EOMI, Normal appearance - ENT Exam ENT Exam: Mucous Membranes Moist, Normal Exam - Neck Exam Neck exam: Positive for: Normal Inspection - Respiratory Exam Respiratory Exam: Clear to Auscultation Bilateral, NORMAL BREATHING PATTERN - Cardiovascular Exam Cardiovascular Exam: REGULAR RHYTHM, +S1, +S2 - GI/Abdominal Exam GI & Abdominal Exam: Soft. absent: Tenderness - Extremities Exam Extremities exam: Positive for: normal inspection. Negative for: calf tenderness - Back Exam Back exam: NORMAL INSPECTION - Neurological Exam Neurological exam: Alert, Oriented x3 - Psychiatric Exam Psychiatric exam: Normal Affect, Normal Mood - Skin Skin Exam: Dry, Intact, Warm Results - Vital Signs Recent Vital Signs: Last Vital Signs Temp 98.1 F 08/13/18 22:26 Pulse 73 08/14/18 01:55 Resp 18 08/14/18 01:55 BP 148/81 08/14/18 01:55 Pulse Ox 98 08/14/18 01:55 - Labs Result Diagrams: 08/13/18 23:35 08/13/18 23:35 Labs: Laboratory Results - last 24 hr 08/13/18 08/13/18 08/13/18 23:35 23:35 23:35 WBC 6.4 RBC 3.63 Hgb 8.6 L Hct 28.3 L MCV 78.0 L MCH 23.7 L MCHC 30.4 L RDW 14.9 H Plt Count 268 MPV 8.8 Neut % (Auto) 65.3 Lymph % (Auto) 23.8 [place] % (Auto) 9.4 H Eos % (Auto) 1.3 L Baso % (Auto) 0.2 Lymph # (Auto) 1.5 [place] # (Auto) 0.6 Eos # (Auto) 0.1 Baso # (Auto) 0.01 Absolute Neuts (auto) 4.15 PT 12.1 INR 1.09 APTT 26.2 L Sodium Potassium Chloride Carbon Dioxide Anion Gap BUN Creatinine Est GFR ( Amer) Est GFR (Non-Af Amer) Random Glucose Calcium Total Bilirubin AST ALT Alkaline Phosphatase Troponin I Total Protein Albumin Globulin Albumin/Globulin Ratio Amylase Lipase Urine Color Yellow Urine Appearance Clear Urine pH 6.0 Ur Specific [place] 1.020 Urine Protein Trace H Urine Glucose (UA) Negative Urine Ketones Negative Urine Blood Negative Urine Nitrate Negative Urine Bilirubin Negative Urine Urobilinogen 0.2 Ur Leukocyte Esterase Negative Urine RBC 0 - 2 Urine WBC 0 - 2 Ur Epithelial Cells 0 - 2 Urine Bacteria Few 08/13/18 23:35 WBC RBC Hgb Hct MCV MCH MCHC RDW Plt Count MPV Neut % (Auto) Lymph % (Auto) [place] % (Auto) Eos % (Auto) Baso % (Auto) Lymph # (Auto) [place] # (Auto) Eos # (Auto) Baso # (Auto) Absolute Neuts (auto) PT INR APTT Sodium 139 Potassium 3.8 Chloride 103 Carbon Dioxide 28 Anion Gap 12 BUN 13 Creatinine 0.9 Est GFR ( Amer) > 60 Est GFR (Non-Af Amer) > 60 Random Glucose 93 Calcium 8.6 Total Bilirubin 0.4 AST 22 ALT 8 Alkaline Phosphatase 76 Troponin I < 0.01 Total Protein 7.3 Albumin 4.0 Globulin 3.3 Albumin/Globulin Ratio 1.2 Amylase 80 Lipase 110 Urine Color Urine Appearance Urine pH Ur Specific [place] Urine Protein Urine Glucose (UA) Urine Ketones Urine Blood Urine Nitrate Urine Bilirubin Urine Urobilinogen Ur Leukocyte Esterase Urine RBC Urine WBC Ur Epithelial Cells Urine Bacteria Assessment & Plan - Assessment and Plan (Free Text) Assessment: 43 y/o F with PMH CLEVE, HTN, uterine fibroids, asthma admitted for anemia, and + FOBT in ED Plan: Microcytic anemia history of iron deficiency anemia. No need for transfusion currently. Likely in the setting of menorrhagia continue home ferrous sulfate FOBT was (+) in ED according to ED PA. Will repeat FOBT in am. Hemodynamically stable. Pt doesn't require emergent endoscopy/colonoscopy. Pt should f/u with GI in outpatient setting f/u iron studies f/u transvaginal ultrasound CT A/P was done 2 days ago without any acute findings. She has benign abdominal physical exam Pt needs to followup with director of architecture outpatient HTN patient doesn't remember name of medication or name of pharmacy Will place prn medications for HTN UTI Pt reports dysuria She was discharged 2 days ago with nitrofurantoin. Continue during hospital stay DVT/GI PPx: Case reviewed with attending physician, Dr. Reji Ji PGY <Gabriela Mendoza - Last Filed: 08/14/18 06:20> Results - Vital Signs Recent Vital Signs: Last Vital Signs Temp 97.8 F 08/14/18 03:37 Pulse 66 08/14/18 03:37 Resp 19 08/14/18 03:37 BP 145/84 08/14/18 03:37 Pulse Ox 98 08/14/18 03:37 - Labs Result Diagrams: 08/13/18 23:35 08/13/18 23:35 Labs: Laboratory Results - last 24 hr 08/13/18 08/13/18 08/13/18 23:35 23:35 23:35 WBC 6.4 RBC 3.63 Hgb 8.6 L Hct 28.3 L MCV 78.0 L MCH 23.7 L MCHC 30.4 L RDW 14.9 H Plt Count 268 MPV 8.8 Neut % (Auto) 65.3 Lymph % (Auto) 23.8 [place] % (Auto) 9.4 H Eos % (Auto) 1.3 L Baso % (Auto) 0.2 Lymph # (Auto) 1.5 [place] # (Auto) 0.6 Eos # (Auto) 0.1 Baso # (Auto) 0.01 Absolute Neuts (auto) 4.15 PT 12.1 INR 1.09 APTT 26.2 L Sodium Potassium Chloride Carbon Dioxide Anion Gap BUN Creatinine Est GFR ( Amer) Est GFR (Non-Af Amer) Random Glucose Calcium Magnesium Iron TIBC % Saturation Total Bilirubin AST ALT Alkaline Phosphatase Troponin I Total Protein Albumin Globulin Albumin/Globulin Ratio Amylase Lipase Urine Color Yellow Urine Appearance Clear Urine pH 6.0 Ur Specific [place] 1.020 Urine Protein Trace H Urine Glucose (UA) Negative Urine Ketones Negative Urine Blood Negative Urine Nitrate Negative Urine Bilirubin Negative Urine Urobilinogen 0.2 Ur Leukocyte Esterase Negative Urine RBC 0 - 2 Urine WBC 0 - 2 Ur Epithelial Cells 0 - 2 Urine Bacteria Few 08/13/18 08/14/18 08/14/18 23:35 02:30 02:30 WBC RBC Hgb Hct MCV MCH MCHC RDW Plt Count MPV Neut % (Auto) Lymph % (Auto) [place] % (Auto) Eos % (Auto) Baso % (Auto) Lymph # (Auto) [place] # (Auto) Eos # (Auto) Baso # (Auto) Absolute Neuts (auto) PT INR APTT Sodium 139 Potassium 3.8 Chloride 103 Carbon Dioxide 28 Anion Gap 12 BUN 13 Creatinine 0.9 Est GFR ( Amer) > 60 Est GFR (Non-Af Amer) > 60 Random Glucose 93 Calcium 8.6 Magnesium 1.9 Iron 30 L TIBC 437 % Saturation 7 L Total Bilirubin 0.4 AST 22 ALT 8 Alkaline Phosphatase 76 Troponin I < 0.01 Total Protein 7.3 Albumin 4.0 Globulin 3.3 Albumin/Globulin Ratio 1.2 Amylase 80 Lipase 110 Urine Color Urine Appearance Urine pH Ur Specific [place] Urine Protein Urine Glucose (UA) Urine Ketones Urine Blood Urine Nitrate Urine Bilirubin Urine Urobilinogen Ur Leukocyte Esterase Urine RBC Urine WBC Ur Epithelial Cells Urine Bacteria Attending/Attestation - Attestation I have personally seen and examined this patient.: Yes I have fully participated in the care of the patient.: Yes I have reviewed all pertinent clinical information: Yes
[2018-08-14 03:55] LABS: IRON 30 ug/dL (45-180)
[2018-08-14 04:04] LABS: % IRON SATURATION 7 % (20-55); TOTAL IRON BINDING CAPACITY 437 ug/dL (265-497)
[2018-08-14 09:27] LABS: BASO # 0.01 K/mm3 (0.0-2.0); BASO % 0.2 % (0.0-3.0); EOS # 0.1 (0.0-0.7); EOS % 1.2 % (1.5-5.0); HEMOGLOBIN 8.5 g/dL (12.0-16.0); LYMPH # 1.2 (1.2-3.4); LYMPH % 24.5 % (22.0-35.0); MEAN CORPUSCULAR HGB CONC 29.8 g/dl (31.0-37.0); MEAN PLATELET VOLUME 8.3 fl (7.0-11.0); MONO # 0.3 (0.1-0.6); MONO % 5.2 % (1.0-6.0); RBC 3.7 10^6/uL (3.5-6.1)
--- NOTE | 2018-08-14 10:52 | US ---
Date of service: 08/14/2018 HISTORY: lower abdominal pain COMPARISON: CT abdomen and pelvis from 08/11/2018. TECHNIQUE: Transvaginal pelvic ultrasound was performed. FINDINGS: UTERUS: Measures 14.3 x 0.4 x 9.3 cm. Anteverted and enlarged. There is a 5.5 x 6.2 x 8.7 cm anterior wall intramural fibroid. ENDOMETRIUM: Measures 12 mm in diameter. Unremarkable. CERVIX: No cervical abnormality identified. RIGHT OVARY: Measures 2.0 x 1.2 x 2.0 cm. No solid mass. Normal flow. LEFT OVARY: Not visualized. FREE FLUID: No significant free fluid noted. OTHER FINDINGS: None. IMPRESSION: Solitary 5.5 x 6.2 x 8.7 cm anterior wall intramural fibroid. A preliminary report was provided by [employer].
--- NOTE | 2018-08-14 11:02 | RAD ---
Date of service: 08/14/2018 HISTORY: abd pain COMPARISON: 05/20/2018. FINDINGS: LUNGS: The lungs are well inflated and clear. PLEURA: No pleural effusions or pneumothorax. CARDIOVASCULAR: There is mild cardiomegaly. No aortic atherosclerotic calcifications present. OSSEOUS STRUCTURES: Within normal limits for the patient's age. VISUALIZED UPPER ABDOMEN: Normal. OTHER FINDINGS: None. IMPRESSION: No active pulmonary disease.
--- NOTE | 2018-08-14 22:45 | CON ---
DATE OF CONSULTATION: 08/14/2018 REFERRING PHYSICIAN: Dr. Walter REASON FOR CONSULTATION: I have been asked to see this 43-year-old female with chronic anemia secondary to menorrhagia from large uterine fibroids, who comes to the hospital with lower abdominal pain. She was seen in the emergency room for the same 3 days ago and was sent home on Macrobid for a urinary tract infection. The patient comes back to the hospital with again lower abdominal pain, crampy in nature, associated with nausea without any vomiting. She denies any vomiting, rectal bleeding, diarrhea or melena. The patient apparently had heme-positive stool in the emergency room. She has an appointment to see her partnership development manager in approximately 5 days. PAST MEDICAL HISTORY: Notable for iron deficiency anemia, uterine fibroids, hypertension, asthma. PAST SURGICAL HISTORY: Notable for cholecystectomy and . FAMILY HISTORY: Notable for both parents with coronary artery disease. SOCIAL HISTORY: She denies cigarette smoking or alcohol use. MEDICATIONS AT HOME: Iron and blood pressure medicine, which she does not know. REVIEW OF SYSTEMS: Notable for pelvic pain and nausea. PHYSICAL EXAMINATION: GENERAL: Well-developed female lying in bed in no acute distress. VITAL SIGNS: Temperature 97.7, blood pressure 171/91, heart rate 69. HEENT: Reveals sclerae to be white. Conjunctivae pale. NECK: Supple. CHEST: Lungs are clear. HEART: Regular rate and rhythm. ABDOMEN: Soft. Mild lower abdominal tenderness. No rebound or guarding. EXTREMITIES: No edema. LABORATORY DATA: Hemoglobin 8.5, which is stable. White blood cell count 5. Chemistries reveal iron saturation of 7. AST, ALT, alk phos all normal. Electrolytes normal. IMPRESSION: 1. A 43-year-old female with chronic iron deficiency anemia from excessive menstrual bleeding. Both the CT scan of the abdomen and pelvis performed 3 days ago as well as a pelvic ultrasound reveal a large uterine fibroid. CT scan of the abdomen and pelvis did not reveal any other abnormalities in the GI tract or stomach. There is no evidence of active bleeding from the GI tract at this time. RECOMMENDATIONS: 1. We will advance diet. 2. The patient has been encouraged to follow up with her partnership development manager for treatment of the uterine fibroid. 3. The patient also has been instructed to have an elective outpatient colonoscopy for heme-positive stools. There is no evidence of active bleeding at this time. She is stable from a GI standpoint for discharge. Xavier Gomez MD
[2018-08-15 04:09] VITALS: TEMP 97.9
--- NOTE | 2018-08-15 05:33 | CARD ---
APPROVED REPORT Date of service: 08/13/2018 EKG Measurement Heart [id number] ID [id number] <Conclusion> Normal sinus rhythm Possible Left atrial enlargement Borderline ECG
[2018-08-15 06:53] VITALS: BP 124/72; RESP 20
[2018-08-15 07:40] LABS: BASO # 0.02 K/mm3 (0.0-2.0); BASO % 0.4 % (0.0-3.0); EOS # 0.1 (0.0-0.7); EOS % 1.6 % (1.5-5.0); HEMOGLOBIN 8.7 g/dL (12.0-16.0); LYMPH # 1.4 (1.2-3.4); LYMPH % 31.1 % (22.0-35.0); MEAN CELL VOLUME 77.4 fl (80.0-105.0); MEAN CORPUSCULAR HEMOGLOBIN 23.1 pg (25.0-35.0); MEAN CORPUSCULAR HGB CONC 29.9 g/dl (31.0-37.0); MEAN PLATELET VOLUME 8.9 fl (7.0-11.0); MONO # 0.3 (0.1-0.6); MONO % 6.2 % (1.0-6.0); RBC 3.76 10^6/uL (3.5-6.1); RED CELL DISTRIBUTION WIDTH 15.1 % (11.5-14.5); WHITE BLOOD COUNT 4.5 10^3/uL (4.5-11.0)
[2018-08-15 08:04] LABS: ALB/GLOB RATIO 1.2 (1.1-1.8); ALBUMIN 3.9 g/dL (3.0-4.8); ALT/SGPT 12 U/L (7-56); AST/SGOT 21 U/L (14-36); BLOOD UREA NITROGEN 15 mg/dL (7-21); CALCIUM 8.9 mg/dL (8.4-10.5); GFR NON-AFRICAN AMERICAN > 60
[2018-08-15 10:00] VITALS: PULSE 55
--- NOTE | 2018-08-15 14:46 | CP.PCM.DIS ---
<Hiro Pryor - Last Filed: 08/15/18 14:36> Provider - Provider Date of Admission: 08/14/18 02:04 Attending physician: Bronwyn Walter DO Primary care physician: Gigi Escobedo Consults: 08/14/18 08:56 Physician Consult Routine Comment: Consulting Provider: Xavier Gomez Consulting Physician: Xavier Gomez Reason for Consult: stool occult postive, anemia Time Spent in preparation of Discharge (in minutes): 35 Diagnosis - Discharge Diagnosis (1) Symptomatic anemia Status: Chronic Hospital Course - Lab Results Lab Results: Most Recent Lab Values WBC 4.5 10^3/uL (4.5-11.0) 08/15/18 07:00 RBC 3.76 10^6/uL (3.5-6.1) 08/15/18 07:00 Hgb 8.7 g/dL (12.0-16.0) L 08/15/18 07:00 Hct 29.1 % (36.0-48.0) L 08/15/18 07:00 MCV 77.4 fl (80.0-105.0) L 08/15/18 07:00 MCH 23.1 pg (25.0-35.0) L 08/15/18 07:00 MCHC 29.9 g/dl (31.0-37.0) L 08/15/18 07:00 RDW 15.1 % (11.5-14.5) H 08/15/18 07:00 Plt Count 263 10^3/uL (120.0-450.0) 08/15/18 07:00 MPV 8.9 fl (7.0-11.0) 08/15/18 07:00 Neut % (Auto) 60.7 % (50.0-68.0) 08/15/18 07:00 Lymph % (Auto) 31.1 % (22.0-35.0) 08/15/18 07:00 [place] % (Auto) 6.2 % (1.0-6.0) H 08/15/18 07:00 Eos % (Auto) 1.6 % (1.5-5.0) 08/15/18 07:00 Baso % (Auto) 0.4 % (0.0-3.0) 08/15/18 07:00 Lymph # (Auto) 1.4 (1.2-3.4) 08/15/18 07:00 [place] # (Auto) 0.3 (0.1-0.6) 08/15/18 07:00 Eos # (Auto) 0.1 (0.0-0.7) 08/15/18 07:00 Baso # (Auto) 0.02 K/mm3 (0.0-2.0) 08/15/18 07:00 Absolute Neuts (auto) 2.73 (1.4-6.5) 08/15/18 07:00 PT 12.1 SECONDS (9.4-12.5) 08/13/18 23:35 INR 1.09 08/13/18 23:35 APTT 26.2 Seconds (26.9-38.3) L 08/13/18 23:35 Sodium 137 mmol/L (132-148) 08/15/18 07:00 Potassium 4.2 mmol/L (3.6-5.0) 08/15/18 07:00 Chloride 102 mmol/L (98-107) 08/15/18 07:00 Carbon Dioxide 26 mmol/L (21-33) 08/15/18 07:00 Anion Gap 14 (10-20) 08/15/18 07:00 BUN 15 mg/dL (7-21) 08/15/18 07:00 Creatinine 0.7 mg/dl (0.7-1.2) 08/15/18 07:00 Est GFR ( Amer) > 60 08/15/18 07:00 Est GFR (Non-Af Amer) > 60 08/15/18 07:00 Random Glucose 81 mg/dL (70-110) 08/15/18 07:00 Calcium 8.9 mg/dL (8.4-10.5) 08/15/18 07:00 Phosphorus 3.9 mg/dL (2.5-4.5) 08/15/18 07:00 Magnesium 1.9 mg/dL (1.7-2.2) 08/15/18 07:00 Iron 30 ug/dL (45-180) L 08/14/18 02:30 TIBC 437 ug/dL (265-497) 08/14/18 02:30 % Saturation 7 % (20-55) L 08/14/18 02:30 Transferrin 306.48 mg/dL (206-381) 08/14/18 06:00 Ferritin 5.3 ng/mL 08/14/18 06:00 Total Bilirubin 0.5 mg/dL (0.2-1.3) 08/15/18 07:00 AST 21 U/L (14-36) 08/15/18 07:00 ALT 12 U/L (7-56) 08/15/18 07:00 Alkaline Phosphatase 73 U/L (38-126) 08/15/18 07:00 Troponin I < 0.01 ng/mL 08/13/18 23:35 Total Protein 7.2 g/dL (5.8-8.3) 08/15/18 07:00 Albumin 3.9 g/dL (3.0-4.8) 08/15/18 07:00 Globulin 3.3 gm/dL 08/15/18 07:00 Albumin/Globulin Ratio 1.2 (1.1-1.8) 08/15/18 07:00 Amylase 80 U/L (35-125) 08/13/18 23:35 Lipase 110 U/L (23-300) 08/13/18 23:35 Urine Color Yellow (YELLOW) 08/13/18 23:35 Urine Appearance Clear (CLEAR) 08/13/18 23:35 Urine pH 6.0 (4.7-8.0) 08/13/18 23:35 Ur Specific [place] 1.020 (1.005-1.035) 08/13/18 23:35 Urine Protein Trace mg/dL (<30 mg/dL) H 08/13/18 23:35 Urine Glucose (UA) Negative mg/dL (NEGATIVE) 08/13/18 23:35 Urine Ketones Negative mg/dL (NEGATIVE) 08/13/18 23:35 Urine Blood Negative (NEGATIVE) 08/13/18 23:35 Urine Nitrate Negative (NEGATIVE) 08/13/18 23:35 Urine Bilirubin Negative (NEGATIVE) 08/13/18 23:35 Urine Urobilinogen 0.2 E.U./dL (<1 E.U./dL) 08/13/18 23:35 Ur Leukocyte Esterase Negative [place]/uL (NEGATIVE) 08/13/18 23:35 Urine RBC 0 - 2 /hpf (0-2) 08/13/18 23:35 Urine WBC 0 - 2 /hpf (0-6) 08/13/18 23:35 Ur Epithelial Cells 0 - 2 /hpf (0-5) 08/13/18 23:35 Urine Bacteria Few /hpf (NONE) 08/13/18 23:35 - Hospital Course Hospital Course: Hiro Pryor DO, PGY-1 Hospitalist Discharge Summary for Dr. Urszula Walter Prior to admission: Patient is a 43 year old female with PMH of iron-deficiency anemia, HTN, asthma, and uterine fibroid who presented to ED with intermittent lower quadrant abdominal pain and SOB. She admitted to menorrhagia at that time, stating she uses 30-40 pads during her typical menstrual period. Her LMP was reported to be 08/01/18. She was subsequently admitted for symptomatic anemia. Hospitalization course: Patient was noted to have positive FOBT on admission. Given patient's anemia, GI evaluation was requested. Patient's diet was advanced and patient was instructed to f/u for colonoscopy outpatient. Patient was continued on macrobid and repeat UA was negative but patient continued to complain of dysuria and some suprapubic discomfort. She was instructed to continue her prior macrobid prescription for the daytime caregiver it was prescribed. Transvaginal US was completed which identified a single fibroid. She otherwise continued to improve and, on examination this AM, patient is resting comfortably and feels ready to go home. She was instructed to f/u with gynecology and GI outpatient as outlined in instructions below. She was also instructed to continue to take iron at home as she was previously. Discharge plan was discussed with patient, all questions were answered. Patient seen, examined with, and discharge plan discussed with my attending Dr. Urszula Pryor D.O. IM Resident PGY-1 Discharge Exam - Head Exam Head Exam: NORMAL INSPECTION, NORMOCEPHALIC - Eye Exam Eye Exam: EOMI, PERRL. absent: Normal appearance (conjunctival pallor) - ENT Exam ENT Exam: Mucous Membranes Moist - Neck Exam Neck exam: Full Rom, Normal Inspection - Respiratory Exam Respiratory Exam: Clear to PA & Lateral, NORMAL BREATHING PATTERN, UNREMARKABLE. absent: Rales, Rhonchi, Wheezes - Cardiovascular Exam Cardiovascular Exam: REGULAR RHYTHM, RRR, +S1, +S2. absent: Diastolic murmur, Gallop, Rubs, Systolic Murmur - GI/Abdominal Exam GI & Abdominal Exam: Normal Bowel Sounds, Soft, Unremarkable. absent: Tenderness - Extremities Exam Extremities exam: full ROM, normal inspection - Back Exam Back exam: NORMAL INSPECTION - Neurological Exam Neurological exam: Alert, Oriented x3 - Psychiatric Exam Psychiatric exam: Normal Affect, Normal Mood - Skin Skin Exam: Dry, Intact, Warm Discharge Plan - Follow Up Plan Condition: STABLE Disposition: HOME/ ROUTINE Instructions: Anemia Caused by Low Iron, Adult (DC), Anemia of Chronic Disease (DC) Additional Instructions: Please follow up with your primary medical doctor at your scheduled appointment on 08/18/18 or sooner if needed. Please follow up with ore crusher within 3-5 days of discharge for work up of your fibroid and heavy periods. Please follow up with the stomach doctor, Dr. Gomez, for outpatient colonoscopy within 1-2 weeks of discharge. Please continue to take iron at home twice a day as you did before. Please continue your home blood pressure medications as prescribed. If any of your symptoms return or you experience new concerning symptoms, please return to nearest emergency department. Referrals: Xavier Gomez MD [Staff Provider] - Maria G Walter MD [Medical Doctor] - <Bronwyn Walter - Last Filed: 08/17/18 12:26> Provider - Provider Date of Admission: 08/14/18 02:04 Attending physician: Bronwyn Walter DO Consults: 08/14/18 08:56 Physician Consult Routine Comment: Consulting Provider: Xavier Gomez Consulting Physician: Xavier Gomez Reason for Consult: stool occult postive, anemia Hospital Course - Lab Results Lab Results: Most Recent Lab Values WBC 4.5 10^3/uL (4.5-11.0) 08/15/18 07:00 RBC 3.76 10^6/uL (3.5-6.1) 08/15/18 07:00 Hgb 8.7 g/dL (12.0-16.0) L 08/15/18 07:00 Hct 29.1 % (36.0-48.0) L 08/15/18 07:00 MCV 77.4 fl (80.0-105.0) L 08/15/18 07:00 MCH 23.1 pg (25.0-35.0) L 08/15/18 07:00 MCHC 29.9 g/dl (31.0-37.0) L 08/15/18 07:00 RDW 15.1 % (11.5-14.5) H 08/15/18 07:00 Plt Count 263 10^3/uL (120.0-450.0) 08/15/18 07:00 MPV 8.9 fl (7.0-11.0) 08/15/18 07:00 Neut % (Auto) 60.7 % (50.0-68.0) 08/15/18 07:00 Lymph % (Auto) 31.1 % (22.0-35.0) 08/15/18 07:00 [place] % (Auto) 6.2 % (1.0-6.0) H 08/15/18 07:00 Eos % (Auto) 1.6 % (1.5-5.0) 08/15/18 07:00 Baso % (Auto) 0.4 % (0.0-3.0) 08/15/18 07:00 Lymph # (Auto) 1.4 (1.2-3.4) 08/15/18 07:00 [place] # (Auto) 0.3 (0.1-0.6) 08/15/18 07:00 Eos # (Auto) 0.1 (0.0-0.7) 08/15/18 07:00 Baso # (Auto) 0.02 K/mm3 (0.0-2.0) 08/15/18 07:00 Absolute Neuts (auto) 2.73 (1.4-6.5) 08/15/18 07:00 PT 12.1 SECONDS (9.4-12.5) 08/13/18 23:35 INR 1.09 08/13/18 23:35 APTT 26.2 Seconds (26.9-38.3) L 08/13/18 23:35 Sodium 137 mmol/L (132-148) 08/15/18 07:00 Potassium 4.2 mmol/L (3.6-5.0) 08/15/18 07:00 Chloride 102 mmol/L (98-107) 08/15/18 07:00 Carbon Dioxide 26 mmol/L (21-33) 08/15/18 07:00 Anion Gap 14 (10-20) 08/15/18 07:00 BUN 15 mg/dL (7-21) 08/15/18 07:00 Creatinine 0.7 mg/dl (0.7-1.2) 08/15/18 07:00 Est GFR ( Amer) > 60 08/15/18 07:00 Est GFR (Non-Af Amer) > 60 08/15/18 07:00 Random Glucose 81 mg/dL (70-110) 08/15/18 07:00 Calcium 8.9 mg/dL (8.4-10.5) 08/15/18 07:00 Phosphorus 3.9 mg/dL (2.5-4.5) 08/15/18 07:00 Magnesium 1.9 mg/dL (1.7-2.2) 08/15/18 07:00 Iron 30 ug/dL (45-180) L 08/14/18 02:30 TIBC 437 ug/dL (265-497) 08/14/18 02:30 % Saturation 7 % (20-55) L 08/14/18 02:30 Transferrin 306.48 mg/dL (206-381) 08/14/18 06:00 Ferritin 5.3 ng/mL 08/14/18 06:00 Total Bilirubin 0.5 mg/dL (0.2-1.3) 08/15/18 07:00 AST 21 U/L (14-36) 08/15/18 07:00 ALT 12 U/L (7-56) 08/15/18 07:00 Alkaline Phosphatase 73 U/L (38-126) 08/15/18 07:00 Troponin I < 0.01 ng/mL 08/13/18 23:35 Total Protein 7.2 g/dL (5.8-8.3) 08/15/18 07:00 Albumin 3.9 g/dL (3.0-4.8) 08/15/18 07:00 Globulin 3.3 gm/dL 08/15/18 07:00 Albumin/Globulin Ratio 1.2 (1.1-1.8) 08/15/18 07:00 Amylase 80 U/L (35-125) 08/13/18 23:35 Lipase 110 U/L (23-300) 08/13/18 23:35 Urine Color Yellow (YELLOW) 08/13/18 23:35 Urine Appearance Clear (CLEAR) 08/13/18 23:35 Urine pH 6.0 (4.7-8.0) 08/13/18 23:35 Ur Specific [place] 1.020 (1.005-1.035) 08/13/18 23:35 Urine Protein Trace mg/dL (<30 mg/dL) H 08/13/18:35 Urine Glucose (UA) Negative mg/dL (NEGATIVE) 08/13/18 23:35 Urine Ketones Negative mg/dL (NEGATIVE) 08/13/18 23:35 Urine Blood Negative (NEGATIVE) 08/13/18 23: Urine Nitrate Negative (NEGATIVE) 08/13/18: Urine Bilirubin Negative (NEGATIVE) 08/13/18 23:35 Urine Urobilinogen 0.2 E.U./dL (<1 E.U./dL) 08/13/18 23:35 Ur Leukocyte Esterase Negative [place]/uL (NEGATIVE) 08/13/18: Urine RBC 0 - 2 /hpf (0-2) 08/13/18 23:35 Urine WBC 0 - 2 /hpf (0-6) 08/13/18 23:35 Ur Epithelial Cells 0 - 2 /hpf (0-5) 08/13/18 23:35 Urine Bacteria Few /hpf (NONE) 08/13/18 23:35 Attending/Attestation - Attestation I have personally seen and examined this patient.: Yes I have fully participated in the care of the patient.: Yes I have reviewed all pertinent clinical information, including history, physical exam and plan: Yes Notes (Text): Please note this DC summary is for 08/15/18 Patient seen and examined by me with residentat approximately 9:10AM and prior to discharge on 08/15/18.Case including discharge plan discussed with resident. Agree with above with following additions/corrections. Patient is a 43 year old female with past medical history significant for iron deficiency anemia, hypertension, asthma, and uterine fibroids that presented to the emergency room with lower abdominal pain. Please see H&P for full details. Patient was found to microcytic anemia, hypertension, and recent UTI. Patient was continued on iron. Patient was found to have positive FOBT in the ED. Patients H&H remained stable. Patient was see by GI who recommended outpatient colonoscopy. Transvaginal ultrasound per radiologist showed solitary 5.5 x 6.2 x 8.7cm anterior wall intramural fibroid. Patient was advised that to follow up with her ore crusher upon discharge. Patient was found to have no infection with her urinalysis. Patient was completed on her outpatient nitrofurantoin. Patient did not know the name of her home blood pressure medications and was placed on Norvasc in the hospital. Patient was feeling better and was cleared for discharge by GI. Patient was discharged home. On day of discharge, patient stated she was feeling much better. Abdominal pain improved. Patient denied chest pain or palpitations. No shortness of breath. Patient denied any headaches or dizziness. No nausea or vomiting. Patient was tolerating diet. No fevers or chills. No dysuria. No change in vision. No diarrhea or constipation. Physical exam: General: Awake and alert sitting up in bed in no acute distress. HEENT: Normocephalic, atraumatic. Extraocular muscles intact. Pupils equal and reactive, no scleral icterus. Oropharynx is pink and moist. No pharyngeal erythema or exudate appreciated. Neck is supple. Cardiovascular: Regular rhythm. Normal S1 and S2. No murmurs, rubs, or gallops appreciated Pulmonary: Normal respiratory effort. No rhonci, rales, or wheezing appreciated. Gastrointestinal: Soft, nondistended. Mild suprapubic tenderness. Positive bowel sounds all 4 quadrants. No guarding. Musculoskeletal: Moves all extremities. No calf tenderness. No edema appreciated. Central nervous system: AAO x3. CN2-12 grossly intact. Dermatologic: Skin warm and dry. Please see chart for full details. Follow up instructions: Patient to follow up with PMD at scheduled appointment on 08/18/18. Patient to follow up with ore crusher within 3-5 days of discharge. Patient to follow up with Dr. Gomez within 1-2 weeks of discharge for colonoscopy. All instructions explained to the patient in detail. Patient both understands and agrees to all instructions. Written instructions also given. Time spent in discharging the patient including chart review, medication reconciliation, discussion with the patient, biomedical scientist, consultants, and nursing staff was approximately 40 minutes.
== END 2018-08-15 13:38 | disposition home or self-care (01) ==
LOC: ED 22:17 → ERH 08-14 02:04 → 3RNO 08-14 03:20
PROVIDERS: ADMIT Hospitalist; ATTEND Hospitalist
DX: D25.1 Intramural leiomyoma of uterus (principal); D50.0 Iron deficiency anemia secondary to blood loss (chronic); N92.0 Excessive and frequent menstruation with regular cycle; N39.0 Urinary tract infection, site not specified; I10 Essential (primary) hypertension; J45.909 Unspecified asthma, uncomplicated; Z87.440 Personal history of urinary (tract) infections; Z82.49 Family history of ischemic heart disease and other diseases of the circulatory system
CPT/HCPCS: 36415; 71045; 76830; 80053; 81001; 81003; 81025; 82150; 82728; 83540; 83690; 83735; 84100; 84466; 84484; 85025; 85610; 85730; 93005; 96374; 96375; 96376; 99285; G0378; J1885; J2270; J2405